=== PATIENT | female | born 1955 | race Caucasian/White ===

== ENCOUNTER 2021-02-24 08:27 | Day surgery (SDC) | payer OTHER ==
[2021-02-24] MEDS ORDERED: Zoledronic Acid/Mannitol/Water 5 MG/100 ML INFUS.BOT IV ONE (09:00)
[2021-02-24 09:23] VITALS: BP 120/58; TEMP 98; O2SAT 99; BMI 26.9
== END 2021-02-24 09:11 | disposition home or self-care (01) ==
LOC: DS 08:27
PROVIDERS: ATTEND Internal Medicine
DX: M81.0 Age-related osteoporosis without current pathological fracture (principal); T50.995A Adverse effect of other drugs, medicaments and biological substances, initial encounter
CPT/HCPCS: 96365; J3489

== ENCOUNTER 2022-12-21 07:00 | Day surgery (SDC) | payer OTHER ==
[2022-12-21] MEDS ORDERED: Zoledronic Acid/Mannitol/Water 5 MG/100 ML INFUS.BOT IV ONE (08:00)
[2022-12-21 10:11] VITALS: BP 143/69; TEMP 98; O2SAT 99; BMI 24.7
== END 2022-12-21 08:15 | disposition home or self-care (01) ==
LOC: DS 07:00
PROVIDERS: ATTEND Internal Medicine
DX: M81.0 Age-related osteoporosis without current pathological fracture (principal)
CPT/HCPCS: 96365; J3489

== ENCOUNTER 2024-07-26 14:30 | Inpatient (IN) | payer BC, OTHER ==
--- OUTSIDE RECORDS SUMMARY | 2024-07-26 14:34 | XMS REPORT | Continuity of Care Document ---
Author Name Unknown Address [address] [facility] [place] [address] [facility] Address [address] [facility] [place] [address] Care Team Providers Care Scouring Machine Tender Name Role Phone PCP, PATIENT DOES NOT HAVE A Primary Care Physic mendez Unavailable HENRIK PERRY Attending Clinician Henrik Mcelroy MD Attending Clinician Bello Haley MA Attending Clinician Vadim Quevedo Attending Clinician Unavailable RADIOLOGY Attending Clinician Unavailable Radiology Attending Clinician Unavailable BASILIA_GCHANSW_Sofia_S Attending Clinician HENRIK Stoddard Admitting Clinician Vadim Kaye Admitting Clinician Unavailable NATHALIE TINOCO Admitting Clinician Unavailable BASILIA_GCBZW_Sofia_S Admitting Clinician Jericho worrell Payers Payer Name Policy Type Policy Number Effective Date Expirati on Date Source [facility] MEDICARE ADV [id number] 2024 00:00:00 MEDICARE PART A \T\ B [id number] 2019 00:00:00 KIM [id number] 2020 00:00:00 [place] B-[place]: [employer] [id number] 2019 00:00:00 [facility] Mina ALVAREZ (MEDICARE SUPPLEMENT) [id number] 2020 00:00:00 Problems Condition Name Condition Details Condition Category Status Onset Date Resolution Date Last Treatment Date Treating Clinician Comments Source Insomnia Insomnia Problem Active 2-25 00:00: 00 [facility] Joint pain Joint Pain Problem Active 2-25 00:00: 00 [facility] Chronic insomnia Chronic Insomnia Problem Active 2-25 00:00: 00 [facility] Postmenopa usal osteoporos is Postmenopa usal Osteoporos is Problem Active 2-04 00:00: 00 [facility] Reduced libido Reduced Libido Problem Active 9-10 00:00: 00 [facility] Pain in pelvis Pain in Pelvis Problem Active 5- 00:00: 00 [facility] Lumbar spondylosi s Lumbar Spondylosi s Problem Active 5 00:00: 00 [facility] Osteoarthr itis of left hip joint Osteoarthr itis of Left Hip Joint Problem Active - 00:00: 00 [facility] Vitamin D deficiency Vitamin D Deficiency Problem Active - 00:00: 00 [facility] Subacute vaginitis Subacute Vaginitis Problem Active 3- 00:00: 00 [facility] Menopausal syndrome Menopausal Syndrome Problem Active 07-18 00:00: 00 [facility] Atrophy of vagina Atrophy of Vagina Problem Active 3- 00:00: 00 [facility] Acute urinary tract infection Acute Urinary Tract Infection Problem Active 1-30 00:00: 00 [facility] Osteoporos is Osteoporos is Problem Active - 00:00: 00 [facility] Fatigue Fatigue Problem Active 1-30 00:00: 00 [facility] Urgent desire to urinate Urgent Desire to Urinate Problem Active 1-30 00:00: 00 [facility] Type 2 diabetes mellitus without complicati on Type 2 Diabetes Mellitus without Complicati on Problem Active 5- 00:00: 00 [facility] Disorder associated with menstruati on AND/OR menopause Disorder Associated with Menstruati on AND/OR Menopause Problem Active 5- 00:00: 00 [facility] Screening mammograph y Screening Mammograph y Problem Active 09-17 00:00: 00 [facility] Screening for malignant neoplasm of colon Screening for Malignant Neoplasm of Colon Problem Active 09-17 00:00: 00 [facility] Superficia l pain on intercours e Superficia l Pain on Intercours e Problem Active 5 00:00: 00 [facility] Candidiasi s of vagina Candidiasi s of Vagina Problem Active 5 00:00: 00 [facility] Pain of breast Pain of Breast Problem Active 07-18 00:00: 00 [facility] Hyperglyce ingrid due to type 2 diabetes mellitus Hyperglyce ingrid Due to Type 2 Diabetes Mellitus Problem Active 07-18 00:00: 00 [facility] Acute vaginitis Acute Vaginitis Problem Active 2017-05 1 00:00: 00 [facility] Inconclusi ve mammograph y finding Inconclusi ve Mammograph y Finding Problem Active 8 00:00: 00 [facility] Abnormal findings on diagnostic imaging of breast Abnormal Findings on Diagnostic Imaging of Breast Problem Active 12-13 00:00: 00 [facility] Genuine stress incontinen ce Genuine Stress Incontinen ce Problem Active 09-05 00:00: 00 [facility] Atrophic vaginitis Atrophic Vaginitis Problem Active 09-03 00:00: 00 [facility] Bone density finding Bone Density Finding Problem Active 09-03 00:00: 00 [facility] Gynecologi daija examinatio n abnormal Gynecologi daija Examinatio n Abnormal Problem Active 09-03 00:00: 00 [facility] Allergies, Adverse Reactions, Alerts Allergy Name Allergy Type Status Severity Reaction(s) Onset Date Inactive Date Treating Clinician Comments Source No Known Allergie s DA Active U 10-31 00:00: 00 [facility] No Known Allergie s DA Active U 10-11 00:00: 00 [facility] No Known Allergie s DA Active U 10-31 00:00: 00 [facility] [place] [facility] No Known Allergie s DA Active U 10-31 00:00: 00 [facility] No Known Drug Intolera nces DA Active U 2002-0 2-04 00:00: 00 [facility] [place] [facility] No Known Contrast Allergie s DA Active U 06-12 00:00: 00 [facility] [place] [facility] No Known Drug Allergie s DA Active U 06-12 00:00: 00 [facility] [place] [facility] No Known Food Allergie s DA Active U 06-12 00:00: 00 [facility] [place] [facility] No Known Other Allergie s DA Active U 06-12 00:00: 00 [facility] [place] [facility] NO KNOWN ALLERGIE S Drug Class Active [facility] Social History Social Habit Start Date Stop Date Quantity Comments Source Gender identity 2023-07-31 00:18:40 Identifies as female gender (finding) Shukri Bird ASSERTION Possible Shukri Bird Sexual orientation [facility] Sex assigned at 1955 00:00:00 1955 00:00:00 [facility] Smoking Status Start Date Stop Date Source Tobacco smoking consumption [facility] Never Smoker [facility] Former Smoker [facility] Medications Ordered Medication Name Filled Medication Name Start Date Stop Date Current Medication? Ordering Clinician Indication Dosage Frequency Signature (SIG) Comments Components Source testosteron e 100 mg implant pelletTake 100 mg by implantatio n route. testosteron e 100 mg implant pelletTake 100 mg by implantatio n route. 07-03 13:57: 21 No 100mg testostero ne 100 mg implant pelletTake 100 mg by implantati on route. [facility] COAST - estradiol 6mg pellet1 COAST - estradiol 6mg pellet1 07-03 13:56: 44 No COAST - estradiol 6mg pellet1 [facility] COAST - testosteron e 37.5mg pellet1 COAST - testosteron e 37.5mg pellet1 07-03 13:55: 26 No COAST - testostero ne 37.5mg pellet1 [facility] estradiol 6 mg implant pellet Take 1 pellet by implantatio n route. estradiol 6 mg implant pellet Take 1 pellet by implantatio n route. 2023-05 16:58: 44 No 1pellet (s) estradiol 6 mg implant pellet Take 1 pellet by implantati on route. [facility] escitalopra m 5 mg tablet TAKE 1 TABLET BY MOUTH EVERY DAY escitalopra m 5 mg tablet TAKE 1 TABLET BY MOUTH EVERY DAY No escitalopr am 5 mg tablet TAKE 1 TABLET BY MOUTH EVERY DAY [facility] Mounjaro 5 mg/0.5 mL subcutaneou s pen injector INJECT FIVE (5) MG UNDER THE SKIN ONCE A WEEK. Mounjaro 5 mg/0.5 mL subcutaneou s pen injector INJECT FIVE (5) MG UNDER THE SKIN ONCE A WEEK. No Mounjaro 5 mg/0.5 mL subcutaneo us pen injector INJECT FIVE (5) MG UNDER THE SKIN ONCE A WEEK. [facility] progesteron e micronized 100 mg capsule Take 1 capsule every day by oral route for 90 days. progesteron e micronized 100 mg capsule Take 1 capsule every day by oral route for 90 days. No 1capsul e(s) Q1D progestero ne micronized 100 mg capsule Take 1 capsule every day by oral route for 90 days. [facility] COAST - estradiol 6mg pellet estradiol 6mg pellet 1 COAST - estradiol 6mg pellet estradiol 6mg pellet 1 No COAST - estradiol 6mg pellet estradiol 6mg pellet 1 [facility] lidocaine HCl 2 % topical gel 1 application to vulva daily as needed for pain. lidocaine HCl 2 % topical gel 1 application to vulva daily as needed for pain. No lidocaine HCl 2 % topical gel 1 applicatio n to vulva daily as needed for pain. [facility] trazodone 50 mg tablet TAKE ONE-HALF TO ONE (1/2 TO 1) TABLET BY MOUTH AT BEDTIME. trazodone 50 mg tablet TAKE ONE-HALF TO ONE (1/2 TO 1) TABLET BY MOUTH AT BEDTIME. No trazodone 50 mg tablet TAKE ONE-HALF TO ONE (1/2 TO 1) TABLET BY MOUTH AT BEDTIME. [facility] COAST - testosteron e 37.5mg pellet testosteron e 37.5mg pellet 1 COAST - testosteron e 37.5mg pellet testosteron e 37.5mg pellet 1 No COAST - testostero ne 37.5mg pellet testostero ne 37.5mg pellet [address] [facility] lidocaine 5 % topical ointment APPLY TO VULVA DAILY NEEDED FOR PAIN. lidocaine 5 % topical ointment APPLY TO VULVA DAILY NEEDED FOR PAIN. No lidocaine 5 % topical ointment APPLY TO VULVA DAILY NEEDED FOR PAIN. [facility] atorvastati n 20 mg tablet TAKE ONE (1) TABLET(S) BY MOUTH IN THE EVENING WITH A MEAL. atorvastati n 20 mg tablet TAKE ONE (1) TABLET(S) BY MOUTH IN THE EVENING WITH A MEAL. No atorvastat in 20 mg tablet TAKE ONE (1) TABLET(S) BY MOUTH IN THE EVENING WITH A MEAL. [facility] duloxetine 60 mg capsule,del ayed release TAKE ONE (1) TABLET(S) BY MOUTH ONCE A DAY. duloxetine 60 mg capsule,del ayed release TAKE ONE (1) TABLET(S) BY MOUTH ONCE A DAY. No duloxetine 60 mg capsule,de layed release TAKE ONE (1) TABLET(S) BY MOUTH ONCE A DAY. [facility] famotidine 40 mg tablet TAKE ONE (1) TABLET(S) BY MOUTH TWICE A DAY. famotidine 40 mg tablet TAKE ONE (1) TABLET(S) BY MOUTH TWICE A DAY. No famotidine 40 mg tablet TAKE ONE (1) TABLET(S) BY MOUTH TWICE A DAY. [facility] folic acid 1 mg tablet TAKE ONE (1) TABLET(S) BY MOUTH ONCE A DAY. folic acid 1 mg tablet TAKE ONE (1) TABLET(S) BY MOUTH ONCE A DAY. No folic acid 1 mg tablet TAKE ONE (1) TABLET(S) BY MOUTH ONCE A DAY. [facility] Janumet 50 mg-1,000 mg tablet TAKE 1 TABLET BY MOUTH TWO TIMES A DAY (WITH BREAKFAST AND SUPPER) Janumet 50 mg-1,000 mg tablet TAKE 1 TABLET BY MOUTH TWO TIMES A DAY (WITH BREAKFAST AND SUPPER) No Janumet 50 mg-1,000 mg tablet TAKE 1 TABLET BY MOUTH TWO TIMES A DAY (WITH BREAKFAST AND SUPPER) [facility] levothyroxi ne 50 mcg tablet TAKE ONE (1) TABLET(S) BY MOUTH ONCE A DAY. levothyroxi ne 50 mcg tablet TAKE ONE (1) TABLET(S) BY MOUTH ONCE A DAY. No levothyrox ine 50 mcg tablet TAKE ONE (1) TABLET(S) BY MOUTH ONCE A DAY. [facility] losartan 25 mg tablet TAKE ONE (1) TABLET(S) BY MOUTH EVERY MORNING. losartan 25 mg tablet TAKE ONE (1) TABLET(S) BY MOUTH EVERY MORNING. No losartan 25 mg tablet TAKE ONE (1) TABLET(S) BY MOUTH EVERY MORNING. [facility] pioglitazon e 15 mg tablet TAKE 1 TABLET BY MOUTH DAILY IN MORNING WITH BREAKFAST pioglitazon e 15 mg tablet TAKE 1 TABLET BY MOUTH DAILY IN MORNING WITH BREAKFAST No pioglitazo ne 15 mg tablet TAKE 1 TABLET BY MOUTH DAILY IN MORNING WITH BREAKFAST [facility] atorvastati n 20 mg tablet TAKE 1 TABLET BY MOUTH DAILY IN EVENING WITH MEAL atorvastati n 20 mg tablet TAKE 1 TABLET BY MOUTH DAILY IN EVENING WITH MEAL No atorvastat in 20 mg tablet TAKE 1 TABLET BY MOUTH DAILY IN EVENING WITH MEAL [facility] duloxetine 60 mg capsule,del ayed release TAKE 1 CAPSULE BY MOUTH EVERY DAY duloxetine 60 mg capsule,del ayed release TAKE 1 CAPSULE BY MOUTH EVERY DAY No duloxetine 60 mg capsule,de layed release TAKE 1 CAPSULE BY MOUTH EVERY DAY [facility] estradiol 0.01% (0.1 mg/gram) vaginal cream INSERT 0.5 GRAMS 3 TIMES A WEEK BY VAGINAL ROUTE AT BEDTIME FOR 30 DAYS. estradiol 0.01% (0.1 mg/gram) vaginal cream INSERT 0.5 GRAMS 3 TIMES A WEEK BY VAGINAL ROUTE AT BEDTIME FOR 30 DAYS. No estradiol 0.01% (0.1 mg/gram) vaginal cream INSERT 0.5 GRAMS 3 TIMES A WEEK BY VAGINAL ROUTE AT BEDTIME FOR 30 DAYS. [facility] famotidine 40 mg tablet TAKE 1 TABLET BY MOUTH TWICE A DAY famotidine 40 mg tablet TAKE 1 TABLET BY MOUTH TWICE A DAY No famotidine 40 mg tablet TAKE 1 TABLET BY MOUTH TWICE A DAY [facility] folic acid 1 mg tablet TAKE 1 TABLET BY MOUTH EVERY DAY folic acid 1 mg tablet TAKE 1 TABLET BY MOUTH EVERY DAY No folic acid 1 mg tablet TAKE 1 TABLET BY MOUTH EVERY DAY [facility] gabapentin 100 mg capsule TAKE 1 CAPSULE BY MOUTH TWICE A DAY gabapentin 100 mg capsule TAKE 1 CAPSULE BY MOUTH TWICE A DAY No gabapentin 100 mg capsule TAKE 1 CAPSULE BY MOUTH TWICE A DAY [facility] Janumet 50 mg-1,000 mg tablet TAKE 1 TABLET BY MOUTH TWO TIMES A DAY (WITH BREAKFAST AND SUPPER) Janumet 50 mg-1,000 mg tablet TAKE 1 TABLET BY MOUTH TWO TIMES A DAY (WITH BREAKFAST AND SUPPER) No Janumet 50 mg-1,000 mg tablet TAKE 1 TABLET BY MOUTH TWO TIMES A DAY (WITH BREAKFAST AND SUPPER) [facility] levothyroxi ne 50 mcg tablet TAKE 1 TABLET BY MOUTH EVERY DAY levothyroxi ne 50 mcg tablet TAKE 1 TABLET BY MOUTH EVERY DAY No levothyrox ine 50 mcg tablet TAKE 1 TABLET BY MOUTH EVERY DAY [facility] losartan 25 mg tablet TAKE 1 TABLET BY MOUTH EVERY DAY IN THE MORNING losartan 25 mg tablet TAKE 1 TABLET BY MOUTH EVERY DAY IN THE MORNING No losartan 25 mg tablet TAKE 1 TABLET BY MOUTH EVERY DAY IN THE MORNING [facility] pioglitazon e 15 mg tablet TAKE 1 TABLET BY MOUTH DAILY IN MORNING WITH BREAKFAST pioglitazon e 15 mg tablet TAKE 1 TABLET BY MOUTH DAILY IN MORNING WITH BREAKFAST No pioglitazo ne 15 mg tablet TAKE 1 TABLET BY MOUTH DAILY IN MORNING WITH BREAKFAST [facility] aspirin 81 mg tablet,cristina yed release Take 1 tablet twice a day by oral route for 42 days. aspirin 81 mg tablet,cristina yed release Take 1 tablet twice a day by oral route for 42 days. No 1 BID aspirin 81 mg tablet,del ayed release Take 1 tablet twice a day by oral route for 42 days. [facility] doxycycline hyclate 100 mg capsule TAKE 1 CAPSULE BY MOUTH TWICE A DAY FOR 7 DAYS doxycycline hyclate 100 mg capsule TAKE 1 CAPSULE BY MOUTH TWICE A DAY FOR 7 DAYS No doxycyclin e hyclate 100 mg capsule TAKE 1 CAPSULE BY MOUTH TWICE A DAY FOR 7 DAYS [facility] Eliquis 2.5 mg tablet TAKE 1 TABLET TWICE A DAY BY ORAL ROUTE DIRECTED FOR 42 DAYS. Eliquis 2.5 mg tablet TAKE 1 TABLET TWICE A DAY BY ORAL ROUTE DIRECTED FOR 42 DAYS. No Eliquis 2.5 mg tablet TAKE 1 TABLET TWICE A DAY BY ORAL ROUTE DIRECTED FOR 42 DAYS. [facility] escitalopra m 5 mg tablet TAKE 1 TABLET BY MOUTH EVERY DAY escitalopra m 5 mg tablet TAKE 1 TABLET BY MOUTH EVERY DAY No escitalopr am 5 mg tablet TAKE 1 TABLET BY MOUTH EVERY DAY [facility] Hibiclens 4 % topical liquid APPLY 1 APPLICATION EVERY DAY BY TOPICAL ROUTE FOR 5 DAYS. Hibiclens 4 % topical liquid APPLY 1 APPLICATION EVERY DAY BY TOPICAL ROUTE FOR 5 DAYS. No Hibiclens 4 % topical liquid APPLY 1 APPLICATIO N EVERY DAY BY TOPICAL ROUTE FOR 5 DAYS. [facility] meloxicam 15 mg tablet TAKE 1 TABLET BY MOUTH EVERY DAY WITH MEALS meloxicam 15 mg tablet TAKE 1 TABLET BY MOUTH EVERY DAY WITH MEALS No meloxicam 15 mg tablet TAKE 1 TABLET BY MOUTH EVERY DAY WITH MEALS [facility] mupirocin 2 % topical ointment APPLY A SMALL AMOUNT TO EACH NOSTRIL DAILY FOR 5 DAYS BEFORE SURGERY mupirocin 2 % topical ointment APPLY A SMALL AMOUNT TO EACH NOSTRIL DAILY FOR 5 DAYS BEFORE SURGERY No mupirocin 2 % topical ointment APPLY A SMALL AMOUNT TO EACH NOSTRIL DAILY FOR 5 DAYS BEFORE SURGERY [facility] oxycodone-a cetaminophe n 5 mg-325 mg tablet Take 1 tablet every 6-8 hours by oral route as needed for 5 days, for acute pain. oxycodone-a cetaminophe n 5 mg-325 mg tablet Take 1 tablet every 6-8 hours by oral route as needed for 5 days, for acute pain. No oxycodone- acetaminop hen 5 mg-325 mg tablet Take 1 tablet every 6-8 hours by oral route as needed for 5 days, for acute pain. [facility] tizanidine 4 mg tablet TAKE 1 TABLET BY MOUTH EVERY 8 HOURS NEEDED FOR 14 DAYS tizanidine 4 mg tablet TAKE 1 TABLET BY MOUTH EVERY 8 HOURS NEEDED FOR 14 DAYS No tizanidine 4 mg tablet TAKE 1 TABLET BY MOUTH EVERY 8 HOURS NEEDED FOR 14 DAYS [facility] tramadol 50 mg tablet TAKE 1 TABLET(S) EVERY 6 HOURS BY ORAL ROUTE NEEDED FOR PAIN FOR 7 DAYS tramadol 50 mg tablet TAKE 1 TABLET(S) EVERY 6 HOURS BY ORAL ROUTE NEEDED FOR PAIN FOR 7 DAYS No tramadol 50 mg tablet TAKE 1 TABLET(S) EVERY 6 HOURS BY ORAL ROUTE NEEDED FOR PAIN FOR 7 DAYS [facility] amoxicillin 500 mg capsule TAKE 4 CAPSULES BY MOUTH 1 HOUR PRIOR TO DENTAL APPOINTMENT amoxicillin 500 mg capsule TAKE 4 CAPSULES BY MOUTH 1 HOUR PRIOR TO DENTAL APPOINTMENT No amoxicilli n 500 mg capsule TAKE 4 CAPSULES BY MOUTH 1 HOUR PRIOR TO DENTAL APPOINTMEN T [facility] Mounjaro 2.5 mg/0.5 mL subcutaneou s pen injector INJECT 0.5ML SUBCUTANEOU SLY ONCE A WEEK Mounjaro 2.5 mg/0.5 mL subcutaneou s pen injector INJECT 0.5ML SUBCUTANEOU SLY ONCE A WEEK No Mounjaro 2.5 mg/0.5 mL subcutaneo us pen injector INJECT 0.5ML SUBCUTANEO USLY ONCE A WEEK [facility] Vital Signs Vital Name Observation Time Observation Value Comments S ource BP Diastolic 2024-06-12 00:00:00 64 mm[Hg] [facility] BP Systolic 2024-06-12 00:00:00 132 mm[Hg] [facility] BMI (Body Mass Index) 2024-06-12 00:00:00 24.4 kg/m2 [facility] Height 2024-06-12 00:00:00 63 [in_i] [facility] Body Weight 2024-06-12 00:00:00 138 [lb_av] [facility] Height 2023-11-21 00:00:00 63 [in_i] [facility] Body Weight 2023-09-13 00:00:00 140 [lb_av] [facility] Height 2023-09-13 00:00:00 63 [in_i] [facility] BMI (Body Mass Index) 2023-09-13 00:00:00 24.8 kg/m2 [facility] Procedures Procedure Date / Time Performed Performing Clinician Source DEXA PERIPHERAL (FOREARM) 2024-06-18 20:16:50 Emi Olvera [facility] DEXA AXIAL (HIP AND SPINE) 2024-06-18 20:16:50 [facility]/>SITES APPENDICLR SKEL 2024-06-18 00:00:[address] [facility] DXA BONE DENSITY STUDY 1/> SITES AXIAL SKEL 2024-06-12 00:00:00 [facility] MAMMO, screening, digital, bilateral 2024-06-12 00:00:[address] [facility] RADEX PELVIS 1/2 VIEWS 2024-02-21 00:00:00 [facility] MAMMO, screening, digital, bilateral 2023-10-20 00:00:00 [facility] Total Replacement of Hip 2023-10-08 00:00:00 [facility] RADEX PELVIS 1/2 VIEWS 2023-09-13 00:00:00 [facility] RADEX SPI 1 VIEW SPEC LVL 2023-09-13 00:00:00 [facility] Augmentation Mammoplasty 2012-05-09 00:00:[address] [facility] Bypass of Stomach 2008-05-09 00:00:00 [facility] Procedure on Back 2001-05-09 00:00:00 [facility] Ligation of Fallopian Tube 1975-05-09 00:00:[address] [facility] Back Surgery [facility] Carpal Tunnel Surgery [facility] Hernia Repair [facility] Hysterectomy [facility] Encounters Start Date/Time End Date/Time Encounter Type Admission Type Attending Clinicians Care Facility Care Department Encounter ID Source 2024-07-03 00:00:00 2024-07-03 00:00:00 Maris Goodwin, COMMERCIAL LINES MANAGER: [address], [facility] [address], [place] [address] , Ph. [facility] [id number] [facility] 2024-06-18 12:47:42 2024-06-18 23:59:00 Outpatient R HENRIK PERRY [facility] [id number] [facility] 2024-06-18 12:47:42 2024-06-18 23:59:00 Hospital Encounter Henrik Perry [facility] [place] [facility] [id number] [facility] 2024-06-12 00:00:00 2024-06-12 00:00:00 Henrik Perry MD: [address], [address], [place] [phone] , Ph. [facility] - GC_GCBZW_Gricelda Moore* [id number] [facility] 2024-05-24 00:00:00 2024-05-24 00:00:00 MAISHA Adamson: [address], [address], [place] [phone] , Ph. [facility] - GC_GCBZW_Gricelda Moore* [id number] [facility] 2024-04-10 00:00:00 2024-04-10 00:00:00 AMANDA LackeyP: [address], [address], [place] [phone] , Ph. [facility] - GC_GCBZW_Gricelda Moore* [id number] [facility] 2024-03-07 00:00:00 2024-04-07 23:52:52 Telephone Tera, Onrawin Tera, Onrawin [facility] [address] [id number] Ana Luisa Herr [facility] 2024-03-09 00:00:00 2024-03-09 00:00:00 LAURA Guevara: [address], [address], [place] [phone] , Ph. [facility] - GC_GCBZW_Gricelda Moore* [id number] [facility] 2024-02-21 00:00:00 2024-02-21 00:00:00 Vadim Trinidad MD: [address] [place], [place] [address] , Ph. [phone] [facility] [place] - [facility] - FOG_Ofc Ivel [id number] [facility] 2024-01-17 00:00:00 2024-01-17 00:00:00 Maris Goodwin, COMMERCIAL LINES MANAGER: [address] [facility] [address], [address] [address] , Ph. [facility] [id number] [facility] 2023-12-20 00:00:00 2023-12-20 00:00:00 Vadim Trinidad MD: [address] [place], [place] [address] , Ph. [phone] [facility] [place] - [facility] - FOG_Ofc Ivel [id number] [facility] 2023-11-21 00:00:00 2023-11-21 00:00:00 Robbie Madison, CASTING PLUG ASSEMBLER: [address] [place], [place] [address] , Ph. [phone] [facility] [place] - [facility] - FOG_Ofc Ivel [id number] [facility] 2023-11-01 06:42:00 2023-11-02 15:12:00 Inpatient Vadim Chicas HCATO SURG [id number] 57 [facility] 2023-10-28 11:46:56 2023-10-28 23:59:00 Outpatient R RADIOLOGY [facility] [id number] [facility] 2023-10-28 11:46:56 2023-10-28 23:59:00 Hospital Encounter Radiology [facility] [id number] [facility] 2023-10-20 00:00:00 2023-10-20 00:00:00 Nathalie Tinoco PA: [address], [facility] [address], [place] [address] , Ph. [facility] - GC_GCBZW_Gricelda ramírez Oscar* [id number] [facility] 2023-10-11 12:03:00 2023-10-11 12:03:00 Outpatient KERRI Trinidad Vadim HCAWU REFE [id number] [facility] 2023-10-11 12:02:00 2023-10-11 12:02:00 Outpatient Vadim Chicas HCACL LABO [id number] 49 [facility] 2023-09-13 00:00:00 2023-09-13 00:00:00 Vadim Trinidad MD: [id number] [place] [address] , Ph. [phone] [facility] [place] - [facility] - FOG_Ofc Ivel [id number] [facility] 2023-08-31 00:00:00 2023-08-31 00:00:00 AMANDA GuevaraP: [address], [address], [place] [address] , Ph. [facility] - GC_GCBZW_Gricelda ramírez Oscar* [id number] [facility] 2023-08-16 00:00:00 2023-08-16 00:00:00 Outpatient GC_GCBZW_Ka diyala_S PRIV PRIV [id number] [facility] 2023-08-11 00:00:00 2023-08-11 00:00:00 Outpatient GC_GCBZW_Ka diyala_S PRIV PRIV [id number] [facility] 2023-07-19 00:00:00 2023-07-19 00:00:00 Outpatient GC_GCBZW_Ka diyala_S PRIV PRIV [id number] [facility] 2023-07-19 00:00:00 2023-07-19 00:00:00 Cynthia Su, COMM[employer]CIAL [employer]ES MANAGER: [address], [address], [place] [address] , Ph. [facility] - GC_GCBZW_La darrell Moore* [id number] [facility] 2023-07-18 00:00:00 2023-07-18 00:00:00 Outpatient GC_GCBZW_Ka diyala_S PRIV PRIV [id number] [facility] 2023-06-07 00:00:00 2023-06-07 00:00:00 Outpatient GC_GCBZW_Ka diyala_S PRIV PRIV [id number] [facility] 2023-06-06 00:00:00 2023-06-06 00:00:00 Outpatient GC_GCBZW_Ka diyala_S PRIV PRIV [id number] [facility] 2023-05-24 00:00:00 2023-05-24 00:00:00 Outpatient GC_GCBZW_Ka diyala_S PRIV PRIV [id number] [facility] 2023-03-03 00:00:00 2023-03-03 00:00:00 Outpatient GC_GCBZW_Ka diyala_S PRIV PRIV [id number] [facility] 2023-03-03 00:00:00 2023-03-03 00:00:00 Outpatient GC_GCBZW_Ka diyala_S PRIV PRIV [id number] [facility] 2022-12-14 00:00:00 2022-12-14 00:00:00 Outpatient GC_GCBZW_Ka diyala_S PRIV PRIV [id number] [facility] 2022-12-14 00:00:00 2022-12-14 00:00:00 Outpatient GC_GCBZW_Ka diyala_S PRIV PRIV [id number] [facility] Results Test Description Test Time Test Comments Results Result Comments Source Dexa Axial (hip and spine) 20:33:17 DEXA ? ? DEXA AXIAL (HIP AND SPINE), DEXA PERIPHERAL (FOREARM) HISTORY: Female 68 years Age-related osteoporosis without currentpathological fracture External orders COMPARISON: ?None TECHNIQUE: Bone densitometry of the left forearm, lumbar spine and hip was performedon a [email or web address] system. ? WHO-definitions ?T score ?normal ? T >/= - 1 SD around the mean ?osteopenia ?-1 > T > -2.5 SD below the mean ? ? osteoporosis ? ? ? T >/= -2.5 SD below the mean ? Fracture risk doubles for each 1.5 SD below the mean. ? FINDINGS: 1. Lumbar spine L1-L4: T value 1.9. ?Bone mineral density of 1.431g/cm^2. 2. Right Hip: T value of -1.0. ?Bone mineral density of 0.878 g/cm^2. Right Neck: T value of -0.8. ?Bone mineral density of 0.922 g/cm^2. Left forearm T value of -3.1. Bone mineral density of 0.605 g/cm^2. [facility] Dexa Peripheral (forearm) 20:33:17 DEXA ? ? DEXA AXIAL (HIP AND SPINE), DEXA PERIPHERAL (FOREARM) HISTORY: Female 68 years Age-related osteoporosis without currentpathological fracture External orders COMPARISON: ?None TECHNIQUE: Bone densitometry of the left forearm, lumbar spine and hip was performedon a [email or web address] system. ? WHO-definitions ?T score ?normal ? T >/= - 1 SD around the mean ?osteopenia ?-1 > T > -2.5 SD below the mean ? ? osteoporosis ? ? ? T >/= -2.5 SD below the mean ? Fracture risk doubles for each 1.5 SD below the mean. ? FINDINGS: 1. Lumbar spine L1-L4: T value 1.9. ?Bone mineral density of 1.431g/cm^2. 2. Right Hip: T value of -1.0. ?Bone mineral density of 0.878 g/cm^2. Right Neck: T value of -0.8. ?Bone mineral density of 0.922 g/cm^2. Left forearm T value of -3.1. Bone mineral density of 0.605 g/cm^2. [facility] MedicalFollitropin [Units/volume] in Serum or [id number] 00:00:00* Test Item Value Reference Range Interpretation Comme nts FSH (test code = FSH) 63.4 mIU/mL [facility] MedicalTestosterone free and total panel [Mass/volume] - Serum or Plasma 2024-05-18 00:00:00* Test Item Value Reference Range Interpretation Comme nts free testosterone (test code = free testosterone) 2.83 NG/dL 0.12-0.64 H sex hormone binding globulin (test code = sex hormone binding globulin) 75.10 nmol/L 10.00-57.00 H testosterone (test code = testosterone) 259.0 NG/dL 8.4-48.1 H [facility] [id number] 12:11:00* Test Item Value Reference Range Interpretation Comme nts GLUBED (test code = GLUBED) 164 mg/dL 60-99 H The normal fasti ng blood glucose range for a non-diabeticadult is 60-99 mg/dL. Two hours after meals, normal blood glucose levels should beless than 140 mg/dL.Please note new normal range. [id number] 11:34:00* Test Item Value Reference Range Interpretation Comme nts glubed (test code = glubed) 164 mg/dL 60-99 H performing lab: (test code = performing lab:) [facility]- XR PELVIS 1/2 [id number] 08:16:00 [facility] : 1955 Sex: F Patient Name: ELMO CRESPO Unit No: [id number] EXAMS: CPT CODE: [id number] XR PELVIS 1/2 VIEWS 04007 AP VIEW OF THE PELVIS. COMMENT: In progress total left hip arthroplasty. AP view of the pelvis COMMENT: Completed total left hip arthroplasty. Prosthesis appears to be in good position. at 0816 Reported and signed by: Pavan Etienne M.D. CC: Vadim Trinidad MD Technologist: Fanny Morgan(R) Transcribed D/ (0816) [facility] NAME: ELMO CRESPO [address] [facility] PHYS: Vadim Smart MD : 1955 AGE: 68 SEX: F [place] [address] LOC: Y.515 A PHONE #: [phone] EXAM DATE: 11/01/2023 STATUS: ADM IN FAX #: [phone] RAD #: D/C DT PAGE 1 Signed Report Patient Name: ELMO CRESPO Unit No: [id number] EXAMS: CPT CODE: [id number] XR PELVIS 1/2 VIEWS 16581 (Continued) Orig Print D/T: S: 11/02/2023 (0819) [facility] NAME: ELMO CRESPO [address] [facility] PHYS: Vadim Smart MD : 1955 AGE: 68 SEX: F [place], [place] [address] LOC: Y.515 A PHONE #: [phone] EXAM DATE: 11/01/2023 STATUS: ADM IN FAX #: [phone] RAD #: D/C DT PAGE 2 Signed Report- XR PELVIS 1/2 [id number] 08:16:00 [facility] EL[facility] : 1955 Sex: F Patient Name: ELMO CRESPO Unit No: [id number] EXAMS: CPT CODE: [id number] XR PELVIS 1/2 VIEWS 41178 AP VIEW OF THE PELVIS. COMMENT: In progress total left hip arthroplasty. AP view of the pelvis COMMENT: Completed total left hip arthroplasty. Prosthesis appears to be in good position. Electronically S igned by Viet Etienne on 11/02/2023 at 0816 Reported and signed by: Pavan Etienne M.D. CC: Vadim Trinidad MD Technologist: KEITH CLEMENTE RT(R) Transcribed D/ (0816) [facility] NAME: ELMO CRESPO [address] [facility] PHYS: Vadim Smart MD : 1955 AGE: 68 SEX: F [place], [place] [address] LOC: Y.515 A PHONE #: [phone] EXAM DATE: 11/01/2023 STATUS: ADM IN FAX #: [phone] RAD #: D/C DT PAGE 1 Signed Report Patient Name: ELMO CRESPO Unit No: [id number] EXAMS: CPT CODE: [id number] XR PELVIS 1/2 VIEWS 23627 (Continued) Orig Print D/T: S: 11/02/2023 (0819) [facility] NAME: ELMO CRESPO [address] [facility] PHYS: Vadim Smart MD : 1955 AGE: 68 SEX: F [place] LOC: Y.515 A PHONE #: [phone] EXAM DATE: 11/01/2023 STATUS: ADM INFAX #: [phone] RAD #: D/C DT PAGE 2 Signed ReportBASIC METABOLIC [id number] 07:57:00* Test Item Value Reference Range Interpretation Comme nts SODIUM (test code = NA) 136 mmol/L 136-145 N POTASSIUM (test code = K) 5.2 mmol/L 3.5-5.1 H CHLORIDE (test code = CL) 100.0 mmol/L 98-107 N CARBON DIOXIDE (test code = CO2) 26.8 mmol/L 21-32 N GLUCOSE (test code = GLU) 103 mg/dL 74-106 N BLOOD UREA NITROGEN (test code = BUN) 15 mg/dL 7-18 N GLOMERULAR FILTRATION RATE (test code = GFR) 64.9 >60 The Glomerular Filtration Rate is a calculated parameterbased on serum Creatinine, patient age and sex. GFR valuesless than 60 mL/min/1.73 square meters are indicative ofChronic Kidney Disease. Values less than 15 mL/min/1.73square meters indicate Kidney failure. The calculation forGFR is based on the CKD-EPI (2020) calculation. This formulais race indifferent and is the recommended formula for GFRby the National Kidney Foundation for Adults.The GFR will not calculate if the sex is unknown or if thepatient's age is <18 years. CREATININE (test code = CREAT) 0.95 mg/dL 0.55-1.02 N CALCIUM (test code = CA) 9.4 mg/dL 8.5-10.1 N [id number] 06:11:00* Test Item Value Reference Range Interpretation Comme nts GLUBED (test code = GLUBED) 109 mg/dL 60-99 H The normal fasti blood glucose range for a non-diabeticadult is 60-99 mg/dL. Two hours after meals, normal blood glucose levels should beless than 140 mg/dL.Please note new normal range. HGB [id number] 05:55:00* Test Item Value Reference Range Interpretation Comme nts HEMOGLOBIN (test code = HGB) 10.5 g/dL 12-16 L HEMATOCRIT (test code = HCT) 32.2 % 37-47 L SPECIMEN COMMENT: POD #[id number] 05:53:00* Test Item Value Reference Range Interpretation Comme nts glubed (test code = glubed) 109 mg/dL 60-99 H performing lab: (test code = performing lab:) [facility] 2023-11-02 04:13:00* Test Item Value Reference Range Interpretation Comme nts hemoglobin (test code = hemoglobin) 10.5 g/dL 12-16 L hematocrit (test code = hematocrit) 32.2 % 37-47 L performing lab: (test code = performing lab:) [id number] 19:50:00* Test Item Value Reference Range Interpretation Comme nts GLUBED (test code = GLUBED) 163 mg/dL 60-99 H The normal fasti ng blood glucose range for a non-diabeticadult is 60-99 mg/dL. Two hours after meals, normal blood glucose levels should beless than 140 mg/dL.Please note new normal range. [id number] 19:11:00* Test Item Value Reference Range Interpretation Comme nts glubed (test code = glubed) 163 mg/dL 60-99 H performing lab: (test code = performing lab:) [facility] 16:59:00* Test Item Value Reference Range Interpretation Comme nts GLUBED (test code = GLUBED) 206 mg/dL 60-99 H The normal fasti ng blood glucose range for a non-diabeticadult is 60-99 mg/dL. Two hours after meals, normal blood glucose levels should beless than 140 mg/dL.Please note new normal range. [id number] 16:18:00* Test Item Value Reference Range Interpretation Comme nts glubed (test code = glubed) 206 mg/dL 60-99 H performing lab: (test code = performing lab:) [facility] 07:37:00* Test Item Value Reference Range Interpretation Comme nts GLUBED (test code = GLUBED) 118 mg/dL 60-99 H The normal fasti ng blood glucose range for a non-diabeticadult is 60-99 mg/dL. Two hours after meals, normal blood glucose levels should beless than 140 mg/dL.Please note new normal range. [id number] 07:21:00* Test Item Value Reference Range Interpretation Comme nts glubed (test code = glubed) 118 mg/dL 60-99 H performing lab: (test code = performing lab:) [facility] MedicineGLYCOSYLATED HEMOGLOBIN (HA1C)2023-10-11 15:08:00* Test Item Value Reference Range Interpretation Comme nts GLYCOSYLATED HEMOGLOBIN (HA1C) (test code = GLYHGB) 5.7 % 4.8-5.9 Any conditi on that shortens erythocyte survival or decreasesmean erythrocyte age (e.g., recovery from acute blood loss,hemolytic anemai) will falsely lower HGBA1c resultsregardless of the method used. HGBA1c results frompatients with HbSS, HbCC and HbSc must be interpreted withcaution given the pathological processes, including anemia,increased red cell turnover, transfusion requirements, thatadversely impact HGBA1c as a marker of long-term glycemiccontrol. Alternative forms of testing such as fructosamineshould be considered for these patients.Any condition that shortens erythocyte survival or decreasesmean erythrocyte age (e.g., recovery from acute blood loss,hemolytic anemia) will falsely lower HGBA1c resultsregardless of the method used. HGBA1c results from patientswith HbSS, HbCC, and HbSc must be interpreted with cautiongiven the pathological processes, including anemia,increased red cell turnover, transfusion requirements, thatadversely impact HGBA1c as a marker of long-term glycemiccontrol. Alternative forms of testing such as fructosamineshould be considered for these patients.DONE AT: [facility] [address] [place] [address] GLYCOSYLATED HEMOGLOBIN (HA1C)2023-10-11 15:08:00* Test Item Value Reference Range Interpretation Comme nts GLYCOSYLATED HEMOGLOBIN (HA1C) (test code = GLYHGB) 5.7 % 4.8-5.9 N Any conditi on that shortens erythocyte survival or decreasesmean erythrocyte age (e.g., recovery from acute blood loss,hemolytic anemia) will falsely lower HGBA1c resultsregardless of the method used. HGBA1c results from patientswith HbSS, HbCC, and HbSc must be interpreted with cautiongiven the pathological processes, including anemia,increased red cell turnover, transfusion requirements, thatadversely impact HGBA1c as a marker of long-term glycemiccontrol. Alternative forms of testing such as fructosamineshould be considered for these patients. COMPREHENSIVE METABOLIC [id number] 12:41:00* Test Item Value Reference Range Interpretation Comme nts SODIUM (test code = NA) 137 mmol/L 136-145 N POTASSIUM (test code = K) 4.6 mmol/L 3.5-5.1 N CHLORIDE (test code = CL) 100.0 mmol/L 98-107 N CARBON DIOXIDE (test code = CO2) 27.1 mmol/L 21-32 N GLUCOSE (test code = GLU) 144 mg/dL 74-106 H BLOOD UREA NITROGEN (test code = BUN) 14 mg/dL 7-18 N GLOMERULAR FILTRATION RATE (test code = GFR) 51.0 >60 L The Glomerular Filtration Rate is a calculated parameterbased on serum Creatinine, patient age and sex. GFR valuesless than 60 mL/min/1.73 square meters are indicative ofChronic Kidney Disease. Values less than 15 mL/min/1.73square meters indicate Kidney failure. The calculation forGFR is based on the CKD-EPI (202) calculation. This formulais race indifferent and is the recommended formula for GFRby the National Kidney Foundation for Adults.The GFR will not calculate if the sex is unknown or if thepatient's age is <18 years. CREATININE (test code = CREAT) 1.16 mg/dL 0.55-1.02 H TOTAL PROTEIN (test code = PROT) 7.2 g/dL 6.4-8.2 N ALBUMIN (test code = ALB) 3.8 g/dL 3.4-5.0 N GLOBULIN (test code = GLOB) 3.4 g/dL 2.2-4.2 N ALBUMIN/GLOBULIN RATIO (test code = A/G) 1.1 0.7-2.0 N CALCIUM (test code = CA) 9.5 mg/dL 8.5-10.1 N BILIRUBIN TOTAL (test code = BILT) 0.30 mg/dL 0.2-1.00 N SGOT/AST (test code = AST) 25.0 U/L 15-37 N SGPT/ALT (test code = ALT) 39.0 U/L 14-59 N ALKALINE PHOSPHATASE TOTAL (test code = ALKP) 54 U/L 46-116 N CBC W/AUTO [id number] 12:25:00* Test Item Value Reference Range Interpretation Comme nts WHITE BLOOD CELL (test code = WBC) 5.3 K/mm3 5.5-11.0 L RED BLOOD CELL (test code = RBC) 3.94 M/mm3 4.2-5.4 L HEMOGLOBIN (test code = HGB) 12.2 g/dL 12-16 N HEMATOCRIT (test code = HCT) 36.7 % 37-47 L MEAN CELL VOLUME (test code = MCV) 93 fL 80-98 N MEAN CELL HGB (test code = MCH) 31.0 pg 27-34 N MEAN CELL HGB CONCENTRATION (test code = MCHC) 33.2 g/dL 30.8-34.1 N RED CELL DISTRIBUTION WIDTH (test code = RDW) 13.0 % 11-16 N PLT (test code = PLT) 259 K/mm3 130-400 N MEAN PLATELET VOLUME (test c ode = MPV) 11.1 fL 8.9-12.1 N NEUTROPHIL % (test code = NT%) 64.5 % 45-70 N LYMPHOCYTE % (test code = LY%) 20.7 % 20-40 N MONOCYTE % (test code = MO%) 8.0 % 3-10 N EOSINOPHIL % (test code = EO%) 5.5 % 1-5 H BASOPHIL % (test code = BA%) 1.1 % 0.0-1.1 N NEUTROPHIL # (test code = NT#) 3.40 K/mm3 2.00-7.50 N LYMPHOCYTE # (test code = LY#) 1.09 K/mm3 1.50-4.00 L MONOCYTE # (test code = MO#) 0.42 K/mm3 0.2-0.8 N EOSINOPHIL # (test code = EO#) 0.29 K/mm3 0.04-0.4 N BASOPHIL # (test code = BA#) 0.06 K/mm3 0.02-0.10 N MANUAL DIFF REQUIRED (test c ode = MDIFF) NO MANUAL DIFF NUCLEATED RED BLOOD CELL (te st code = NRBC) 0 % 0-0 N Testosterone free and total panel [Mass/volume] - Serum or [id number] 00:00:00* Test Item Value Reference Range Interpretation Comme nts free testosterone (test code = free testosterone) 2.55 NG/dL 0.12-0.64 H sex hormone binding globulin (test code = sex hormone binding globulin) 103.00 nmol/L 10.00-57.00 H testosterone (test code = testosterone) 300.0 NG/dL 8.4-48.1 H [facility] Notes Date/Time Note [id number]22 [place] [id number] 10:44:00 [facility] Clinical Note REPORT#:[id number] REPORT STATUS: Signed REPORT INITIALIZATION DATE:11/02/23 TIME: 104 PATIENT: ELMO CRESPO UNIT #: [id number] [facility] AGE: 68 SEX: F ATTEND: Vadim Trinidad MD ADM AUTHOR: Julius Patricio MD REPT SERVICE DT/TIME: 11/02/23 1044 * ALL edits or amendments must be made on the electronic/computer document * Clinical Note Note: [facility] Julius Mendez M.D. (cell text [phone]) Assessment/Plan 1.) Anemia of acute blood loss- .Hgb 10.5, asymptomatic. 2.) S/p Left GUTIERREZ- .acute multi-modal pain control and followup. Anticoagulation as per Dr. Trinidad. 3.) Hypertension- .follow BP and hold Rxs if SBP<120. 4.) OsteoArthritis Hyperlipidemia Hypothyroid Diabetes2- .continue on Rx. * OK for DISCHARGE per Internal Medicine - once cleared by PT. Prior Events/Overnight: Uneventful. Chief Complaint: No significant complaints. Objective Vital Signs: Date Time Temp Pulse Resp B/P B/P Pulse O2 O2 Flow FiO2 Mean Ox Delivery Rate 11/01 1154 97.9 14 11/01 1134 99.7 79 14 130/67 87.9 98 Room air 11/01 0737 100.9 82 15 125/69 87.7 100 Room air 11/01 0403 97.2 73 18 131/76 94.5 96 10/31 2322 97.0 67 18 134/74 94.4 96 10/31 1913 97.9 68 18 117/68 84.3 95 10/31 1537 96.8 71 20 124/67 85.7 97 10/31 1500 96 Nasal 1 cannula Gen: Alert, oriented, in mild discomfort Neck: No Masses, No Thyromegaly- CV: Regular Rate Rhythm / Edema- no significant Resp: Clear To Ascultation / Normal Respiratory Effort ABD: NonTender / NonDistended MS/Skin: No sign of compartment syndrome / +ankle DF/PF Other: drain out Labs/X-ray: Laboratory Tests: 11/01 11/01 10/31 10/31 0553 0413 1911 1618 Chemistry Sodium (136 - 145 mmol/L) 136 Potassium (3.5 - 5.1 mmol/L) 5.2 H Chloride (98 - 107 mmol/L) 100.0 Carbon Dioxide (21 - 32 mmol/L) 26.8 BUN (7 - 18 mg/dL) 15 Creatinine (0.55 - 1.02 mg/dL) 0.95 Glomerular Filtr Rate (>60) 64.9 Glucose (74 - 106 mg/dL) 103 POC Glucose (60 - 99 mg/dL) 109 H 163 H 206 H Calcium (8.5 - 10.1 mg/dL) 9.4 Hematology Hgb (12 - 16 g/dL) 10.5 L Hct (37 - 47 %) 32.2 L Julius Mendez M.D. at 1221 RPT #:[id number] END OF REPORT [id number] 08:36:00 [facility] Discharge Summary REPORT#:[id number] REPORT STATUS: Signed REPORT INITIALIZATION DATE:11/02/23 TIME: 835 PATIENT: ELMO CRESPO UNIT #: [id number] ROOM/BED: [address] : [birth year] AGE: 68 SEX: F ATTEND: Vadim Trinidad MD ADM AUTHOR: Robbie Madison APRN REPT SERVICE DT/TIME: 11/02/23 0836 * ALL edits or amendments must be made on the electronic/computer document * General Information Discharge date: 11/02/23 Discharge diagnosis: Left hip osteoarthritis Hospital course: Discharge Diagnosis: Left Hip Degenerative Disease Procedure: Left Hip Arthroplasty Hospital Course and Findings The patient underwent the procedure without incident. Findings were significant for degenerative disease of the hip. The patient was hemodynamically and medically monitored during the postoperative period. Anticoagulation was instituted for postoperative DVT prophylaxis. The patient was progressively able to tolerate PO pain medications and the appropriate diet. Physical therapy was instituted, with a progressive ability to ambulate and perform exercises. The patient was eventually deemed stable and safe for discharge. Despite factors which projected a longer hospital stay, the patient fulfilled criteria for earlier than expected discharge, including control of pain, early mobilization with therapy, and a stable hemodynamic status. At discharge, the patient was comfortable, with a controlled pain level. There were no chest or abdominal symptoms present. Discharge physical examination demonstrated stable vital signs and no acute distress. The patient had an intact wound with no significant drainage, and no calf tenderness and a negative Hilary s sign bilaterally. There were no neurologic or vascular deficits or changes from the preoperative state. Disposition: Discharged to home Discharge Condition: Stable Instructions: Instruction sheet given to patient Activity: Ambulate with assistance and walking aid, with weight-bearing as instructed in the hospital. Weight bearing limitations were reviewed with the patient during the hospitalization. Diet: As per preoperatively Prescriptions 1. Pain Medications: As per discharge prescription, with progressive weaning as pain decreases 2. Anticoagulation: As per discharge prescription, or PreOp anticoagulant, as discussed with patient Follow-up Appointment: Patient instructed to arrange appointment for an office visit in 2 weeks Med Rec Med Rec Discharge meds: Continue taking these medications: DULoxetine DR (CYMBALTA) 60 MG CAP.DR 60 MILLIGRAM ORAL DAILY. LEVOTHYROXINE (LEVOTHROID) 50 MCG TAB 50 MICROGRAM ORAL DAILY. LOSARTAN (LOSARTAN) 25 MG TAB 25 MILLIGRAM ORAL DAILY. ATORVASTATIN (LIPITOR) 20 MG TAB 20 MILLIGRAM ORAL BEDTIME. FOLIC ACID (FOLIC ACID) 1 MG TAB 1 MILLIGRAM ORAL DAILY. CALCIUM CARBONATE (CALTRATE 600 MG) 1 TAB TAB 600 MILLIGRAM ORAL DAILY. IRON (EZFE 200) 200 MG CAP 200 MILLIGRAM ORAL DAILY. CHOLECALCIFEROL (VITAMIN D3) (VITAMIN D3) 1,000 UNITS TAB 1,000 UNITS ORAL DAILY. PIOGLITAZONE/metFORMIN (ACTOPLUS MET 15/500 MG) 15 MG-500 MG TAB 1 TABLET ORAL DAILY. sitaGLIPtin/metFORMIN XR (JANUMET XR MG) 50 MG-1,000 MG TAB.ER.24H 1 TABLET ORAL TWICE DAILY. FAMOTIDINE (PEPCID) 40 MG TAB 40 MILLIGRAM ORAL TWICE DAILY. MELOXICAM (MOBIC) 15 MG TAB 15 MILLIGRAM ORAL DAILY. [HRT ] 1 CAPSULE ORAL DAILY. ACETAMINOPHEN/diphenhydrAMINE (TYLENOL PM) 500 MG-25 MG TAB 1 EACH ORAL BEDTIME. LACTOBACILLUS ACIDOPHILUS (PROBIOTIC ACIDOPHILUS) 1 CAP CAP 1 CAPSULE ORAL DAILY. Discharge Instructions PCP )( Discharge to: Home/Self Care Discharge Instructions Additional Discharge Routines: Attending Follow-Up, Wound/Dressing Care )( Diet: Resume Home Diet/Feeds, Regular )( Activity: Resume Normal Activity, As Tolerated, Do not Submerge Incision )( Wound/dressing care: Do not submerge incision, Leave dressing in place, OK to shower tomorrow Follow-up Appointments Attending Physician: Attending Physician: Vadim Trinidad MD Attending physician follow up timeframe: In 2-3 weeks Special instructions: Aspirin twice a day to prevent a blood clot Leave gauze dressing on for 72 hours. Leave glued dressing on until follow up. Ok to shower. CALL THE DOCTOR OFFICE TO SCHEDULE A FOLLOW-UP APPOINTMENT at 0836 at 1037 RPT #:[id number] END OF REPORT [id number] 17:56:00 [facility] Clinical Note REPORT#:[id number] REPORT STATUS: Signed REPORT INITIALIZATION DATE:11/01/23 TIME: 1755 PATIENT: ELMO CRESPO UNIT #: [id number] ROOM/BED: [address] : 54 AGE: 68 SEX: F ATTEND: Vadim Trinidad MD ADM AUTHOR: Julius Patricio MD REPT SERVICE DT/TIME: 11/01/231755 * ALL edits or amendments must be made on the electronic/computer document * Clinical Note Note: [facility] Julius Mendez MD (cell text [phone]) Internal Medicine Consult at request of : Dr. Vadim Trinidad. Chief Complaint: .left hip pain HPI: 68 yo F is now s/p Left Total Hip Arthroplasty by Dr. Trinidad. Ms. Crespo relates years of progressive left hip pain (recently severe), worse with activity, and popping crunchy with restricted motion at times in quality. She has failed conservative management. Comorbidities: see below. PmHx: .OsteoArthritis, sleep apnea- no CPAP, type 2 diabetes mellitus, hypothyroidism, hypertension, hyperlipidemia ALLERGY: Allergies: No Known Allergies (Coded, 11/01/23) Home Medications: Home Medications: PIOGLITAZONE/metFORMIN (ACTOPLUS MET 15/500 MG) 1 TAB PO DAILY sitaGLIPtin/metFORMIN XR (JANUMET XR MG) 1 TAB PO BID FAMOTIDINE (PEPCID) 40 MG PO BID MELOXICAM (MOBIC) 15 MG PO DAILY [HRT ] 1 CAP PO DAILY ACETAMINOPHEN/diphenhydrAMINE (TYLENOL PM) 1 EACH PO BEDTIME LACTOBACILLUS ACIDOPHILUS (PROBIOTIC ACIDOPHILUS) 1 CAP PO DAILY ESCITALOPRAM (LEXAPRO) 5 MG PO DAILY DULoxetine DR (CYMBALTA) 60 MG PO DAILY LEVOTHYROXINE (LEVOTHROID) 50 MCG PO DAILY LOSARTAN 25 MG PO DAILY ATORVASTATIN (LIPITOR) 20 MG PO BEDTIME FOLIC ACID 1 MG PO DAILY CALCIUM CARBONATE (CALTRATE 600 MG) 600 MG PO DAILY IRON (EZFE 200) 200 MG PO DAILY CHOLECALCIFEROL (VITAMIN D3) (VITAMIN D3) 1,000 UNITS PO DAILY SgHx: .Lumbar fusion, gastric bypass, breast surgery, hernia repair, finger surgery SHx: Tob: former smoker FHx: .No significant hx of DVT/PE. Alcohol: none Drugs: none Lives: with spouse . . Vitals: Vital Signs: Date Time Temp Pulse Resp B/P B/P Pulse O2 O2 Flow FiO2 Mean Ox Delivery Rate 10/31 1537 96.8 71 20 124/67 85.7 97 10/31 1500 96 Nasal 1 cannula 10/31 1148 98.2 90 14 120/70 86.9 97 Nasal cannula 10/31 1145 Nasal 3 99 cannula 10/31 1120 97.7 88 14 136/74 94.4 99 Nasal cannula 10/31 1100 98.4 86 14 143/63 98 Nasal 3 cannula 10/31 1053 Nasal 3 cannula 10/31 1045 98.4 86 13 149/68 97 Nasal 3 cannula 10/31 1030 89 12 147/66 100 Nasal 3 cannula 10/31 1015 90 12 151/68 100 Simple 6 mask 10/31 1004 Simple 6 mask 10/31 1004 98.6 76 13 119/56 99 Simple 6 mask 10/31 0645 97.4 68 16 136/79 95 Room air Gen: Alert, in mild discomfort. EYE: Nl lids conjunctiva. ENT: Nl ears Nose, nl lips,. Neck: Supple, nl thyroid, No masses. CV: Regular Rate Rhythm, no heave or significant murmur. Edema- none RESP: Clear to Auscultation, normal Respiratory effort. ABD: Soft, NonDistended,. LYM: No significant cervical lymphadenopathy. MS: No sign of compartment syndrome, hip dressing clean, drain in place. NEURO: Nonfocal, grossly normal sensation of LE, +Ankle DF/PF . . Preop Labs(10/11/23): CBC:. Hgb 12.2, Plt 259, CHEM: Na 137, K 4.6, Cr 1.16 (eGFR51 %), . Ekg: Normal sinus rhythm (medium to high risk of complications or morbidity) (major surgery) (IV sedative, meds) . Assessment Plan 1.) Anemia of Acute Blood Loss- .will recheck tomorrow. 2.) S/p Left GUTIERREZ- .acute multi-modal pain control and followup. Anticoagulation as per Dr. Trinidad. 3.) Hypertension- .follow BP and hold Rxs if SBP<120. 4.) OsteoArthritis Hyperlipidemia Hypothyroid Diabetes2- .continue on Rx. . Julius Mendez M.D. Thanks! . . . . . G8417 BMI documented as above normal parameters and a f/u plan is documented G9903 - Patient screened for tobacco use AND identified as a tobacco non-user 1123F - ACP disscussion - default code status while at [facility]. at 2002 RPT #:[id number] END OF REPORT [id number]:[id number] [address] PATIENT NAME: ELMO CRESPO ADMIT DATE: 11/01/23 ACCOUNT NO: [id number] ROOM NO: Y.515 AGE: 68 REPORT TYPE: OPERATIVE REPORT SEX: F ADMITTING PHYSICIAN:Vadim Trinidad MD ATTENDING PHYSICIAN:Vadim Trinidad MD OPERATION DATE: 11/01/2023 PREOPERATIVE DIAGNOSIS: Left hip osteoarthropathy. POSTOPERATIVE DIAGNOSIS: Left hip osteoarthropathy, M16.12. OPERATIVE PROCEDURES PERFORMED: 1. Computer-assisted imageless left total hip arthroplasty, . . IMPLANTS UTILIZED: DePuy total hip system, size 46 mm emphasis cup, standard liner, size 3 standard ACTIS femoral stem, 32 mm head +1 neck. Both the acetabular and femoral components were pressfit. ANESTHESIA: General. ESTIMATED BLOOD LOSS: Less than 20 mL. SURGEON: Vadim Trinidad M.D. STRAIGHTENER: ,Delilah OPA/LSA. OPERATIVE FINDINGS: As above. SURGICAL SPECIMENS SENT: None. CLINICAL INDICATIONS: Ms. Crespo is a 68-year-old female from [place], [place], who presents with severe and persistent left hip pain over the past 10 years. The pain has become quite disabling over the past 3 years. She is having pain on a daily basis. Her quality of life has greatly deteriorated. She has had no improvement despite extensive nonoperative treatment. She is admitted for computer-assisted imageless left total hip arthroplasty. OPERATIVE NARRATIVE: 1. COMPUTER-ASSISTED IMAGELESS LEFT TOTAL HIP ARTHROPLASTY, . . DESCRIPTION OF PROCEDURE: Ms. Crespo was brought to the operative suite, at which time she was placed in supine position on the OR table. Routine monitors were established. General anesthesia was delivered. After satisfactory induction of general anesthesia, the patient was placed in the right lateral decubitus position per Mr. Mazariegos. Pulses were checked and noted to be PATIENT NAME: ELMO CRESPO patent x4. The left hip was circumferentially prepped and draped in usual sterile fashion. Standard anterolateral Hardinge approach was performed. Iliotibial band was divided in line with the skin incision. The abductors were taken sharply off insertion on the greater trochanter. Anterior capsulotomy was performed. Femoral head was dislocated anteriorly. The femoral neck was resected 15 mm proximal to the lesser trochanter as per preoperative templating. The labrum was excised circumferentially from the acetabulum. Acetabular retractors were placed. Sequential reaming was performed to a size 45 mm reamer. Two percutaneous pins were then placed in superior aspect of the iliac crest. The OrthAlign guide was placed and the hip was registered. Under direct computer guidance, the acetabular component was placed in 40 degrees of abduction, 15 degrees of anteversion. Neutral polyethylene insert was then placed into the cup. Attention was then turned to the proximal femur. Sequential broaching was performed to a size 3 broach. Utilizing the broach as a trial, standard neck +1 length, 32 mm head was placed and the hip was reduced. Clinically, jainism of leg length and offset were achieved. No impingement was noted. No instability was present. Intraoperative x-rays confirmed jainism of leg length and offset with optimal positioning of the implants. The hip was dislocated, the broach was removed and the formal size 3 ACTIS femoral component was press-fit. The 32 mm head, +1.5 neck was placed and the hip was reduced. Copious antibiotic lavage was performed. The abductors were meticulously repaired utilizing #5 Ethibond suture incorporating a transosseous suture technique. Medium Hemovac drain was then placed deep to the IT band. The IT band was closed in watertight fashion [id number] #5 Ethibond suture. Skin closed with interrupted 0 Vicryl followed by 2-0 Vicryl, followed by Ethicon Efraín as per Mr. Mazariegos. Postoperative anesthetic injection performed by Mr. Mazariegos. Sterile dressing was applied by Mr. Mazariegos. The patient was then extubated to recovery room awake and alert without any anesthetic or operative complications. At the end of the case, sponge and needle counts were correct x2. During the procedure, Mr. Mazariegos was invaluable in positioning the patient along with preparation and draping of extremity. He was also vital providing surgical exposure throughout the procedure, which greatly expedited the performance of the procedure in addition to protection of neurovascular structures. Finally, he was responsible for closure of the postoperative incisions, postoperative anesthetic injection and application of postoperative dressing. Utilizing the OrthAlign computer guidance system allows precise placement of the acetabular component, which could be essential for both short-term and long-term success of the implant. Dictated By: Vadim Trinidad MD Date Dictated: 11/01/2023 09:56:30 Date Transcribed: 11/01/2023 10:18:44 RLB/ PATIENT NAME: ELMO CRESPO Receipt ID: [id number] Authenticated by Vadim Trinidad MD On 11/01/2023 11:49:06 AM at 1149 PATIENT NAME: ELMO CRSEPO 06:21:00 [facility] Brief Op Note REPORT#:[id number] REPORT STATUS: Signed REPORT INITIALIZATION DATE:11/01/23 TIME: 620 PATIENT: ELMO CRESPO UNIT #: [id number] ROOM/BED: : 54 AGE: 68 SEX: F ATTEND: Vadim Trinidad MD ADM AUTHOR: Vadim Trinidad MD REPT SERVICE DT/TIME: 11/01/23 0621 * ALL edits or amendments must be made on the electronic/computer document * Op/Inv Proc Note - Brief Pre-procedure diagnosis: Left hip osteoarthritis Post-procedure diagnosis: same as pre procedure dx Procedures performed: Left total hip arthroplasty Primary Surgeon: Dr Vadim Trinidad Curatorial Assistant(s): Patrick FLANNERY Findings: See full dictation Complications: none Estimated blood loss in ml's: 25cc Specimens removed/altered: none at 0621 RPT #:[id number] END OF REPORT [id number]:[id number] [facility] [place] [address] PATIENT NAME: ELMO CRESPO ADMIT DATE: 11/01/23 ACCOUNT NO: [id number] ROOM NO: Y.998 AGE: 68 REPORT TYPE: HISTORY AND PHYSICAL SEX: F ADMITTING PHYSICIAN:Vadim Trinidad MD ATTENDING PHYSICIAN:Vadim Trinidad MD ADMISSION DATE: 11/01/2023 10:30:00 ADMITTING DIAGNOSIS: Left hip osteoarthritis, M16.12. HISTORY OF PRESENT ILLNESS: Ms. Crespo is a 68-year-old female who has been having severe and progressive pain involving her left hip for the past several years. She is experiencing pain on a daily basis. Her pain has been refractory to nonoperative treatment. Due to her progressive disability and lack of response to nonoperative intervention, Ms. Crespo is admitted for a computer-assisted imageless left total hip arthroplasty. PAST MEDICAL HISTORY: Arthritis, depression, diabetes, thyroid disease. PAST SURGICAL HISTORY: Surgeries include a lumbar laminectomy, carpal tunnel release, herniorrhaphy, and hysterectomy. FAMILY HISTORY: Arthritis, hypertension, coronary artery disease. SOCIAL HISTORY: She is a former smoker. She drinks occasionally. ALLERGIES: NO ALLERGIES ARE LISTED. MEDICATIONS: Atorvastatin, estradiol, Janumet, levothyroxine, losartan. REVIEW OF SYSTEMS: Negative. PHYSICAL EXAMINATION: She is 5 feet 3 inches tall, she weighs 63.5 kg. Orthopedic evaluation reveals an antalgic gait. She has a 5 mm leg length inequality. She has painful rotation of the left hip. She has limited range of motion. Her distal neurovascular status is intact. IMAGING: Radiographic evaluation revealed severe osteoarthropathy involving the left hip. ASSESSMENT: Left hip pain secondary to severe osteoarthritis. SURGICAL PLAN: Computer-assisted imageless left total hip arthroplasty. I have gone over at length with the patient the associated risks involved with this procedure. She understands that these risks include but are not limited to bleeding, infection, neurovascular damage, persistent pain, loss of motion, need for further operative intervention, leg length inequality, loosening of the prosthesis requiring possible revision, painful scar, persistent limp, PATIENT NAME: ELMO CRESPO dislocation of the prosthesis, deep vein thrombi leading to pulmonary emboli along with complications secondary to anesthesia. Furthermore, she understands that there are absolutely no guarantees or warranties that she would be pain free as a result of this procedure. She understands that she will receive press-fit fixation of both the acetabular and femoral components. She further understands that her blood sugars will be monitored both preoperatively and postoperatively and that it is imperative that she monitor her and manage her glucose in order to prevent postoperative morbidity. She accepts these risks and gives her informed consent to proceed. Dictated By: Vadim Trinidad MD Date Dictated: 10/30/2023 17:45:23 Date Transcribed: 10/30/2023 18:12:52 RLB/RAG Receipt ID: [id number] Authenticated by Vadim Trinidad MD On 11/01/2023 09:49:15 AM at 0949 PATIENT NAME: ELMO CRESPO 11:15:[id number]- [id number] [place] [address] PATIENT NAME: ELMO CRESPO ADMIT DATE: ACCOUNT NO: [id number] ROOM NO: AGE: 68 REPORT TYPE: ELECTROCARDIOGRAM SEX: F ADMITTING PHYSICIAN: ATTENDING PHYSICIAN:Vadim Trinidad MD Order: [id number] Test Reason : PREOP CLEARANCE HTN Test Date/Time Stamp: TueOct 11 2023 11:15:26 Blood Pressure : / mmHG Vent. Rate : 065 BPM Atrial Rate : 065 BPM P-R Int : 156 ms QRS Dur : 080 ms QT Int : 422 ms P-R-T Axes : 073 077 066 degrees QTc Int : 438 ms Normal sinus rhythm Normal ECG No previous ECGs available Confirmed by JOHNATHON CEDENO MD ([id number]) on 10/14/2023 8:53:25 AM Referred By: Vadim Trinidad Confirmed by:JOHNATHON CEDENO MD PATIENT NAME: ELMO CRESPO 10:[id number]- [id number] [place] [address] PATIENT NAME: ELMO CRESPO ADMIT DATE: 12/11/18 ACCOUNT NO: [id number] ROOM NO: AGE: 63 REPORT TYPE: OPERATIVE REPORT SEX: F ADMITTING PHYSICIAN: ATTENDING PHYSICIAN:Wilver Starkey MD OPERATION DATE: 12/11/2018 PREOPERATIVE DIAGNOSES: 1. Right index finger trigger. 2. Right middle finger trigger. 3. Left middle finger trigger. 4. Left ring finger trigger. POSTOPERATIVE DIAGNOSES: 1. Right index finger trigger. 2. Right middle finger trigger. 3. Left middle finger trigger. 4. Left ring finger trigger. TITLE OF OPERATION: 1. Right index finger trigger annular maxi release. 2. Right middle finger trigger annular maxi release. 3. Left middle finger trigger steroid injection. 4. Left ring finger steroid injection. SURGEON: Wilver Starkey MD. ELECTRONIC SCALE TESTER: ANESTHESIA: IV sedation, [facility] Section and 1% metacarpal block administered to the right index and middle finger metacarpals [address] Wilver Starkey. INDICATION: A 63-year-old white female with triggering of her right index and right middle finger with locking and intermittent triggering of her left middle and her left ring finger to undergo a right index and middle finger trigger release and left middle and ring finger trigger steroid injection. PROCEDURE IN DETAIL: After satisfactory IV sedation, the right index and middle finger were administered a 10 mL of 1% lidocaine metacarpal block by Dr. Wilver Starkey. The right hand was then prepped and draped in the usual orthopedic fashion. All dissection was performed under 2-1/2 power magnification. Hand was exsanguinated with compression and a wrist tourniquet inflated to 225 mmHg. A transverse incision was made in the distal palmar crease of the right index and right middle finger, dissected down through skin and subcutaneous tissue. Neurovascular bundles were protected. Bleeding controlled with Bovie cautery. PATIENT NAME: ELMO CRESPO Annular maxi A1 was released on the index finger and the middle finger. Traction lysis of the flexor tendons allowed good excursion without triggering. Wounds were irrigated with saline and bacitracin. A 0.25% Marcaine, epinephrine and Kenalog solution 5 mL was placed along the flexor tendinosis and skin closed with 4-0 nylon mattress sutures. Bulky compression dressing and Chapin wrap was applied. Tourniquet was released on the wrist after approximately 15 minutes with good capillary refill of the fingertips. The left middle finger and the left ring finger trigger were then injected with 0.25% Marcaine, epinephrine and Kenalog solution 3 mL each. The patient tolerated all procedures well and returned to recovery room in satisfactory condition. Dictated By: Wilver Starkey MD WT: OP:MAURICIO/AICHA/EUGENIE Conf#: [id number]/DID#: [id number] Authenticated and Edited by Wilver Starkey MD On 12/12/18 7:28:47 AM at 0731 PATIENT NAME: ELMO CRESPO
--- NOTE | 2024-07-26 16:30 | RAD REPORT ---
EXAM: Right upper quadrant ultrasound. CLINICAL HISTORY: Abdominal pain COMPARISON: 2019 FINDINGS: A stone is present within the gallbladder neck. Mild gallbladder wall thickening. Mild gallbladder distention. Biliary tree normal caliber IMPRESSION: Cholelithiasis. Mildly thickened gallbladder wall may indicate cholecystitis
[2024-07-26] MEDS ORDERED: FAMOTIDINE 20 MG/2 ML VIAL IV ONE (16:35)
[2024-07-26] MEDS ORDERED: DIPHENHYDRAMINE 50 MG/ML VIAL ONE (16:35)
[2024-07-26] MEDS ORDERED: METOCLOPRAMIDE 10 MG/2mL INJ ONE (16:35)
[2024-07-26 16:44] LABS: Absolute Basophils 0.1 K/uL (0-0.5); Absolute Eosinophils 0.1 K/uL (0-0.5); Absolute Lymphocytes (CBC) 1.2 K/uL (0.7-4.9); Absolute Neutrophil 12.3 K/uL (1.8-8.0); Basophils % 0.7 % (0-1.3); Hematocrit 43.7 % (36.0-45.0); Hemoglobin 14.7 g/dL (12.0-15.0); MCH 31.6 pg (27.0-35.0); MCHC 33.6 g/dL (32.0-36.0); MCV 94.1 fL (80-100); MPV 9.3 fL (7.6-11.3); Monocytes % 6.9 % (3.3-12.3); Neutrophils % 83.4 % (41.7-73.7); Platelets 318 thou/uL (152-406); RBC Red Blood Cell Count 4.64 M/uL (3.86-4.86); Red Cell Distribution Width 14.3 % (12.1-15.2)
[2024-07-26 16:46] LABS: Specific Gravity 1.027 (1.005-1.030); Sqamous Epithelial <5 /HPF (None Seen); Urine Bacteria <20 /HPF (<20); Urine Bilirubin NEGATIVE (Negative); Urine Blood Negative (Negative); Urine Clarity Extremely Turbid (Clear); Urine Color Yellow (Yellow); Urine Crystals Unidentified Few /HPF (None Seen); Urine Culture Reflex Order NOT NEEDED; Urine Glucose NEGATIVE (Negative); Urine Ketones 1+ (Negative); Urine Microscopic Reflex YN ORDER UMIC; Urine Mucus Slight /HPF (None Seen); Urine Nitrite NEGATIVE (Negative); Urine Protein 1+ (Negative); Urine RBC <5 /HPF (None Seen); Urine Urobilinogen 1+ (Normal); Urine WBC <5 /HPF (<5); Urine WBC Clump Rare /HPF (None Seen); Urine Yeast (Budding) Trace /HPF (None Seen)
[2024-07-26 17:01] LABS: ALT/SGPT 28 U/L (13-56); AST/SGOT 14 U/L (15-37); Albumin 4.6 g/dL (3.4-5.0); Alkaline Phosphatase 85 U/L (45-117); Anion Gap 11.5 mEq/L (5.0-15.0); BUN Blood Urea Nitrogen 12 mg/dL (7-18); Bicarbonate 25 mEq/L (21-32); Globulin 4.6 g/dL (2.3-3.5); Glomerular Filtration Rate 36 ml/min (=/>90); Glucose Level 108 mg/dL (74-106); Lipase 45 U/L (13-75); Potassium 3.5 mEq/L (3.5-5.1); Protein, Total 9.2 g/dL (6.4-8.2); Sodium Level 135 mEq/L (136-145); Troponin High Sensitivity < 3.0 pg/mL (<58.9)
--- NOTE | 2024-07-26 17:33 | EDPHYS ---
Physician Documentation [facility] Name: Omayra Brandon Age: 69 yrs Sex: Female : 1955 Arrival Date: 07/26/2024 Time: 14:30 Bed 15 Private MD: ED Physician HPI: 07/26 15:45 This 69 yrs old Female presents to ER via Ambulatory with complaints of Abdominal Pain. cp 15:45 The patient presents with abdominal pain in the upper abdomen. cp 15:45 Onset: The symptoms/episode began/occurred this past Tuesday. The symptoms radiate to back. Associated signs and symptoms: Pertinent positives: anorexia, nausea, Pertinent negatives: chest pain, constipation, diarrhea, fever, vomiting blood, active vomiting. The symptoms are described as waxing/waning. Modifying factors: the symptoms are aggravated by food. Severity of pain: in the emergency department the pain is unchanged despite home interventions. Historical: - Allergies: 15:32 No Known Allergies; iw - PMHx: 15:32 Hypertensive disorder; Diabetes mellitus; Hypothyroidism; iw - PSHx: 15:32 gastric bypass; left hip; iw - Immunization history:: Adult Immunizations up to date. - Infectious Disease History:: Denies. - Social history:: Smoking status: Patient denies any tobacco usage or history of. ROS: 15:50 Constitutional: Positive for poor PO intake, Negative for body aches, chills, fever, cp 15:50 Eyes: Negative for injury, pain, redness, and discharge, cp 15:50 ENT: Negative for drainage from ear(s), ear pain, sore throat, difficulty swallowing, difficulty handling secretions, 15:50 Cardiovascular: Negative for chest pain, palpitations, 15:50 Respiratory: Negative for cough, shortness of breath, wheezing, 15:50 Abdomen/GI: Positive for abdominal pain, nausea, anorexia, Negative for diarrhea, constipation, active vomiting, 15:50 Neuro: Negative for altered mental status, headache, numbness, syncope, weakness, 15:50 All other systems are negative, Exam: 15:55 Constitutional: The patient appears in no acute distress, alert, awake, cp non-diaphoretic, non-toxic, well developed, well nourished, uncomfortable, 15:55 Head/Face: Normocephalic, atraumatic. cp 15:55 Eyes: Periorbital structures: appear normal, Conjunctiva: normal, no exudate, no injection, Sclera: no appreciated abnormality, Lids and lashes: appear normal, bilaterally, 15:55 ENT: External ear(s): are unremarkable, Nose: is normal, Mouth: Lips: moist, Oral mucosa: moist, Posterior pharynx: Airway: no evidence of obstruction, patent, 15:55 Chest/axilla: Inspection: normal, Palpation: crepitus, is not appreciated, tenderness, is not appreciated, 15:55 Cardiovascular: Rate: normal, Rhythm: regular, 15:55 Respiratory: the patient does not display signs of respiratory distress, Respirations: normal, no use of accessory muscles, no retractions, labored breathing, is not present, Breath sounds: are clear throughout, no decreased breath sounds, no stridor, no wheezing, 15:55 Abdomen/GI: Inspection: abdomen appears normal, Bowel sounds: active, all quadrants, Palpation: soft, in all quadrants, moderate abdominal tenderness, in the epigastric area, right upper quadrant and left upper quadrant, rebound tenderness, is not appreciated, voluntary guarding, is elicited in the epigastric area, right upper quadrant and left upper quadrant, 15:55 Back: CVA tenderness, is absent, 15:55 Neuro: Orientation: to person, place \T\ time. Mentation: is normal, Motor: moves all fours, strength is normal, Gait: is steady, 19:58 ECG was reviewed by the Attending Physician. cp Vital Signs: 15:31 BP 112 / 72; Pulse 82; Resp 18; Temp 97.9; Pulse Ox 100% on R/A; Pain 10/10; iw 19:30 BP 126 / 82; Pulse 88; Resp 17; Temp 98; Pulse Ox 100% on R/A; Pain 0/10; rg5 15:31 Pain Scale: Adult iw 19:30 Pain Scale: Adult rg5 MDM: 15:30 Medical Screening Exam initiated cp 16:00 Differential diagnosis: AAA, acute coronary syndrome, cholecystitis, Cholelithiasis, cp non-specific abd pain, pancreatitis, Peptic Ulcer Disease, Perf. Duodenal Ulcer, Perf. Gastric Ulcer, Pyelonephritis, Ureterolithiasis, urinary tract infection. 17:35 Data reviewed: vital signs, nurses notes, lab test result(s), EKG, radiologic studies, cp plain films, ultrasound, and as a result, I will admit patient. 17:35 Consideration of Admission/Observation Patient was admitted/placed on observation. cp Management of patient was discussed with the following: District Plant Supervisor: DR Jamison with provide surgical consultation after discussion and patient to be admitted to service of pcp, DR Miller. I considered the following discharge prescriptions or medication management in the emergency department Medications were administered in the Emergency Department. See MAR. Care significantly affected by the following chronic conditions: Diabetes, Hypertension. Counseling: I had a detailed discussion with the patient and/or guardian regarding the historical points, exam findings, and any diagnostic results supporting the discharge/admit diagnosis, lab results, radiology results, the need for further work-up and treatment in the hospital. Response to treatment: the patient's symptoms have mildly improved after treatment. 07/26 15:38 Order name: CBC with Diff; Complete Time: 17:18 cp 07/26 15:38 Order name: CMP; Complete Time: 17:18 cp 07/26 15:38 Order name: Lipase; Complete Time: 17:18 cp 07/26 15:38 Order name: Urinalysis w/ reflexes; Complete Time: 17:18 cp 07/26 15:38 Order name: Troponin High Sensitivity; Complete Time: 17:18 cp 07/26 18:37 Order name: Basic Metabolic Panel EDLA 07/26 18:37 Order name: Basic Metabolic Panel EDLA 07/26 18:37 Order name: CBC with Automated Diff EDLA 07/26 18:37 Order name: CBC with Automated Diff EDLA 07/26 18:37 Order name: Lipase EDLA 07/26 18:37 Order name: Lipase EDLA 07/26 18:37 Order name: Liver (Hepatic) Function EDLA 07/26 18:37 Order name: Liver (Hepatic) Function EDLA 07/26 15:38 Order name: Abdomen Limited US: gallbladder; Complete Time: 17:18 cp 07/26 17:19 Interpretation: Report reviewed. cp 07/26 18:37 Order name: CONS Physician Consult EDLA 07/26 15:38 Order name: IV Saline Lock; Complete Time: 16:39 cp 07/26 15:38 Order name: Labs collected and sent; Complete Time: 16:39 cp 07/26 15:38 Order name: EKG - Nurse/Tech; Complete Time: 19:50 cp 07/26 15:38 Order name: NPO; Complete Time: 16:42 cp EC:58 Rate is 64 beats/min. Rhythm is regular. HI interval is normal. QRS interval is normal. cp QT interval is normal. T waves are Inverted in lead aVR. Interpreted by me. Reviewed by me. Administered Medications: 16:42 Drug: metoCLOPramide IVP 10 mg IVP once; over 1 to 2 minutes Route: IVP; Site: left aa5 forearm; 16:50 Follow up: Response: No adverse reaction aa5 16:42 Drug: diphenhydrAMINE IVP 12.5 mg IVP once Route: IVP; Site: left forearm; aa5 16:50 Follow up: Response: No adverse reaction aa5 16:43 Drug: Famotidine IVP 20 mg IVP once; dilute with 10 mL 0.9% NaCl; give over 2 minutes aa5 Route: IVP; Site: left forearm; 16:50 Follow up: Response: No adverse reaction aa5 18:59 Drug: NS 0.9% IV 500 ml 500 ml IV at 1 bolus once; to be given as a bolus over 30 ph minutes Volume: 500 ml; Route: IV; Rate: 1 bolus; Site: left forearm; 21:10 Follow up: IV Status: Completed infusion; IV Intake: 500ml rg5 18:59 Drug: cefOXitin IVPB 1 grams IVPB once over 30 mins; (mix in 50 mL NS) Route: IVPB; ph Infused Over: 30 mins; Site: left forearm; 21:10 Follow up: IV Status: Completed infusion; IV Intake: 100ml rg5 21:10 Follow up: Response: No adverse reaction; IV Status: Completed infusion ha1 19:45 Drug: metroNIDAZOLE IVPB 500 mg 100 ml IVPB once over 30 mins Volume: 100 ml; Route: rg5 IVPB; Infused Over: 30 mins; Site: left forearm; 21:09 Follow up: IV Status: Completed infusion; IV Intake: 100ml rg5 Disposition Summary: 07/26/24 17:32 Hospitalization Ordered Notes: Hospitalization Status: Inpatient Admission cp Provider: Manfred Miller cp Location: Telemetry/[facility] (Inpatient) cp Condition: Stable cp Problem: new cp Symptoms: have improved cp Bed/Room Type: Standard cp Room Assignment: 209(07/26/24 19:35) iw Diagnosis - Calculus of gallbladder with acute cholecystitis without obstruction cp - Nausea with vomiting, unspecified cp - Epigastric pain cp Forms: - Medication Reconciliation Form cp - SBAR form cp - Leadership Thank You Letter cp Addendum: 07/31/2024 11:15 I was immediately available for consultation during this patient's visit. I did not e c2 personally see the patient or discuss the patient with the KANDI. . Signatures: Dispatcher [employer] Camille Obrien RN RN iw Sue Grace RN RN aa5 Anaya Chavez RN RN ph Collins Johnson, MAISHA PA cp Woo Staples MD MD ec2 Александр Edward RN RN rg5 Elizabeth Rand RN ha1 Corrections: (The following items were deleted from the chart) 07/26 15:38 15:38 Abdomen Limited+US.RAD.BRZ ordered. EDLA EDLA 19:35 17:32 cp iw
--- NOTE | 2024-07-26 17:33 | ER ---
Nurse's Notes [facility] Name: Omayra Brandon Age: 69 yrs Sex: Female : 1955 Arrival Date: 07/26/2024 Time: 14:30 Bed 15 Private MD: Diagnosis: Calculus of gallbladder with acute cholecystitis without obstruction;Nausea with vomiting, unspecified;Epigastric pain Presentation: 07/26 15:31 Chief complaint: Patient states: upper abd pain since Tuesday . worse when eating. iw Coronavirus screen: At this time, the client does not indicate any symptoms associated with coronavirus-19. Ebola Screen: No symptoms or risks identified at this time. Initial Sepsis Screen: Does the patient meet any 2 criteria? No. Patient's initial sepsis screen is negative. Does the patient have a suspected source of infection? No. Patient's initial sepsis screen is negative. Risk Assessment: Do you want to hurt yourself or someone else? Patient reports no desire to harm self or others. Onset of symptoms was July 23, 2024. 15:31 Method Of Arrival: Ambulatory iw 15:31 Acuity: CHRISTINE 3 iw Historical: - Allergies: 15:32 No Known Allergies; iw - PMHx: 15:32 Hypertensive disorder; Diabetes mellitus; Hypothyroidism; iw - PSHx: 15:32 gastric bypass; left hip; iw - Immunization history:: Adult Immunizations up to date. - Infectious Disease History:: Denies. - Social history:: Smoking status: Patient denies any tobacco usage or history of. Screenin:00 [facility] ED Fall Risk Assessment (Adult) History of falling in the last 3 months, ph including since admission No falls in past 3 months (0 pts) Confusion or Disorientation Yes (5 pts) Intoxicated or Sedated No (0 pts) Impaired Gait No (0 pts) Mobility Assist Device Used No (0 pt) Altered Elimination No (0 pt) Score/Fall Risk Level 0 - 2 = Low Risk Oriented to surroundings, Maintained a safe environment, Hourly rounding (assess needs \T\ fall precautionary measures) done. Abuse screen: Denies threats or abuse. Denies injuries from another. Nutritional screening: No deficits noted. Tuberculosis screening: No symptoms or risk factors identified. Assessment: 16:40 Reassessment: Patient is alert, oriented x 3, equal unlabored respirations, skin aa5 warm/dry/pink. General: Appears comfortable. 18:59 General: Appears in no apparent distress. comfortable, well groomed, Behavior is calm, ph cooperative, appropriate for age. Pain: Complains of pain in epigastric area Pain radiates to right upper quadrant. Neuro: Level of Consciousness is awake, alert, obeys commands, Oriented to person, place, time, situation. Cardiovascular: Capillary refill < 3 seconds in bilateral fingers Patient's skin is warm and dry. Respiratory: Airway is patent Respiratory effort is even, unlabored, Respiratory pattern is regular, symmetrical. GI: Abdomen is non-distended, Bowel sounds present X 4 quads. Abd is soft X 4 quads Reports upper abdominal pain, epigastric pain, nausea. Derm: Skin is pink, warm \T\ dry. Vital Signs: 15:31 BP 112 / 72; Pulse 82; Resp 18; Temp 97.9; Pulse Ox 100% on R/A; Pain 10/10; iw 19:30 BP 126 / 82; Pulse 88; Resp 17; Temp 98; Pulse Ox 100% on R/A; Pain 0/10; rg5 15:31 Pain Scale: Adult iw 19:30 Pain Scale: Adult rg5 ED Course: 14:34 Patient arrived in ED. al6 14:47 Collins Johnson PA is PHCP. cp 14:47 Woo Staples MD is Attending Physician. cp 15:32 Triage completed. iw 15:33 Arm band placed on. iw 16:21 Abdomen Limited US: gallbladder In Process Unspecified. EDMS 16:39 CBC with Diff Sent. cc6 16:39 CMP Sent. cc6 16:39 Lipase Sent. cc6 16:39 Urinalysis w/ reflexes Sent. cc6 16:45 Initial lab(s) drawn, by ms, sent to lab. Urine collected: clean catch specimen. cc6 Inserted saline lock: 22 gauge in left forearm, using aseptic technique. Blood collected. Flushed with 10 mL NS. 17:31 Manfred Miller MD is Hospitalizing Provider. cp 18:18 Anaya Chavez, RN is Primary Nurse. ph 19:00 Александр Edward, ASTON is Primary Nurse. rg5 19:01 Patient has correct armband on for positive identification. Placed in gown. Bed in low ph position. Call light in reach. Side rails up X 1. Pulse ox on. NIBP on. Door closed. Noise minimized. Warm blanket given. 19:01 No provider procedures requiring assistance completed. Patient admitted, IV remains in ph place. 20:21 Primary Nurse role handed off by Anaya Chavez RN rv1 20:21 Attending Physician role handed off by Woo Staples MD rv1 21:10 Provided Education on: POST ER CARE. rg5 Administered Medications: 16:42 Drug: metoCLOPramide IVP 10 mg IVP once; over 1 to 2 minutes Route: IVP; Site: left aa5 forearm; 16:50 Follow up: Response: No adverse reaction aa5 16:42 Drug: diphenhydrAMINE IVP 12.5 mg IVP once Route: IVP; Site: left forearm; aa5 16:50 Follow up: Response: No adverse reaction aa5 16:43 Drug: Famotidine IVP 20 mg IVP once; dilute with 10 mL 0.9% NaCl; give over 2 minutes aa5 Route: IVP; Site: left forearm; 16:50 Follow up: Response: No adverse reaction aa5 18:59 Drug: NS 0.9% IV 500 ml 500 ml IV at 1 bolus once; to be given as a bolus over 30 ph minutes Volume: 500 ml; Route: IV; Rate: 1 bolus; Site: left forearm; 21:10 Follow up: IV Status: Completed infusion; IV Intake: 500ml rg5 18:59 Drug: cefOXitin IVPB 1 grams IVPB once over 30 mins; (mix in 50 mL NS) Route: IVPB; ph Infused Over: 30 mins; Site: left forearm; 21:10 Follow up: IV Status: Completed infusion; IV Intake: 100ml rg5 21:10 Follow up: Response: No adverse reaction; IV Status: Completed infusion ha1 19:45 Drug: metroNIDAZOLE IVPB 500 mg 100 ml IVPB once over 30 mins Volume: 100 ml; Route: rg5 IVPB; Infused Over: 30 mins; Site: left forearm; 21:09 Follow up: IV Status: Completed infusion; IV Intake: 100ml rg5 Medication: 19:01 VIS not applicable for this client. ph Intake: 21:09 IV: 100ml; Total: 100ml. rg5 21:10 IV: 100ml; Total: 200ml. rg5 21:10 IV: 500ml; Total: 700ml. rg5 Outcome: 17:32 Decision to Hospitalize by Provider. cp 21:09 Admitted to Tele accompanied by tech, via stretcher, room 409, ha1 21:09 Condition: stable 21:09 Instructed on the need for admit, Demonstrated understanding of instructions, 21:10 Admitted to Med/surg accompanied by tech, via wheelchair, rg5 21:10 Condition: stable 21:10 Instructed on the need for admit, 21:11 Patient left the ED. rg5 Signatures: Dispatcher [employer] EDCamille Gutierrez, RN RN Sue Grace RN RN aa5 Anaya Chavez RN RN Collins Chaidez PA PA cp Elizabeth Rand, RN RN ha1 Kiley Eden rv1 Александр Edward, RN RN rg5 Elizabeth José cc6 Polly Cortez al6 Corrections: (The following items were deleted from the chart) 20:25 20:18 Patient left the ED. rg5 rg5 20:26 20:25 Александр Edward, RN is Primary Nurse. rg5 rg5
[2024-07-26] MEDS ORDERED: MORPHINE 2 MG/ML SYR IV PRN (18:43)
[2024-07-26] MEDS ORDERED: CEFOXITIN SODIUM 1 GM/VIAL ONE (18:43)
[2024-07-26] MEDS ORDERED: NA CHLORIDE 0.9% 0 ML ONE (18:44)
[2024-07-26] MEDS ORDERED: METRONIDAZOLE 500mg IVPB 500 MG/100 ML BAG IV ONE (18:44)
[2024-07-26] MEDS ORDERED: NA CHLORIDE 0.9% 500 ML ONE (18:44)
[2024-07-26] MEDS ORDERED: MORPHINE 4 MG/ML SYR IV PRN (18:49)
[2024-07-26] MEDS: NA CHLORIDE 0.9% 1,000 ML IV SCH (21:55)
[2024-07-26] MEDS: HYDROMORPHONE HCL 0.5 MG/0.5 ML INJ IV PRN (21:56)
[2024-07-26] MEDS: ONDANSETRON 4 MG/2 ML VIAL IV PRN (22:38)
[2024-07-26 23:24] VITALS: BMI 23.0
[2024-07-27 04:50] LABS: Absolute Basophils 0.1 K/uL (0-0.5); Absolute Eosinophils 0.1 K/uL (0-0.5); Absolute Lymphocytes (CBC) 1.2 K/uL (0.7-4.9); Absolute Monocytes 0.8 K/uL (0.1-1.3); Absolute Neutrophil 5.8 K/uL (1.8-8.0); Basophils % 0.8 % (0-1.3); Eosinophils % 1.8 % (0-4.4); Hematocrit 35.6 % (36.0-45.0); Hemoglobin 12.2 g/dL (12.0-15.0); Lymphocytes % 14.9 % (15.3-44.8); MCH 32.2 pg (27.0-35.0); MCHC 34.3 g/dL (32.0-36.0); MCV 93.9 fL (80-100); Monocytes % 9.9 % (3.3-12.3); Neutrophils % 72.6 % (41.7-73.7); Platelets 183 thou/uL (152-406); RBC Red Blood Cell Count 3.79 M/uL (3.86-4.86); Red Cell Distribution Width 13.9 % (12.1-15.2)
[2024-07-27 05:13] LABS: Albumin 3.3 g/dL (3.4-5.0); Albumin/Globulin Ratio 0.9 (1.1-1.8); Anion Gap 8.3 mEq/L (5.0-15.0); Bilirubin Direct 0.2 mg/dL (0-0.2); Bilirubin Indirect, Calculated 0.5 mg/dL (0.2-0.8); Bilirubin Total 0.7 mg/dL (0.2-1.0); Globulin 3.6 g/dL (2.3-3.5); Potassium 4.3 mEq/L (3.5-5.1); Protein, Total 6.9 g/dL (6.4-8.2)
--- NOTE | 2024-07-27 07:57 | PREOPCON ---
Date of Consultation: 07/26/2024 Reason For Consultation: Abdominal pain. History Of Present Illness: The patient is a 69-year-old female, presented to the emergency room wit h approximately 4-day history of epigastric abdominal pain, radiating to the back, postprandial in na ture, associated with nausea, but no vomiting. She did have bloating. No belching or heartburn. No diarrhea or constipation. No blood in her stool. No dysuria, hematuria. No sore throat, runny nos e, cough, headaches, or dizziness. No chest pain. No fever or chills. Review of Systems: Otherwise unremarkable. Past Medical History: Significant for hypertension, diabetes type 2, hypothyroidism. Past Surgical History: Laparoscopic gastric bypass in 2008, left hip surgery, hysterectomy, and back surgery. Allergies: NO ALLERGIES. Social History: The patient denies smoking or drinking alcohol. Family History: Noncontributory. Physical Examination: Vital Signs: Stable. She is afebrile. General: She is awake, alert, and oriented x3. Head and Neck: There is no evidence of icterus. No neck masses. No JVD. Throat clear. Neck is kimbrough pple. Chest: Clear. Heart: S1, S2. Abdomen: Soft, nondistended. Positive bowel sounds. Mild tenderness in the right upper quadrant. No rebound or rigidity. No Shay sign at this time. Extremities: Adequately perfused. Nontender. Neuro: Nonfocal. Laboratory Data: Reviewed. White count on admission was 14.8 with a left shift. This morning, it i s 8 and the left shift has improved. Chemistry reviewed. The patient's LFTs and lipase are within n ormal limits. Electrolytes are also noted. She had an ultrasound done yesterday, which shows cholel ithiasis with mild thickening of the gallbladder and stone is present within the gallbladder neck, wh ich probably indicates cholecystitis. Assessment: Acute cholecystitis and cholelithiasis. Plan: Admit. N.p.o. IV fluid. IV antibiotics. To the OR for laparoscopic cholecystectomy, possib le open. The patient understands risks, benefits, and alternatives and agrees to procedure. /MODL Voice ID: [id number] Report ID: [id number]
--- NOTE | 2024-07-27 09:12 | PN ---
Date of Progress Note: 07/27/2024 Subjective: The patient was seen this morning for followup. No new complaints or problems reported by her. She continues to have epigastric abdominal pain, but pain medication helps her. No new prob lems or complaints reported this morning. Objective: Vital Signs: Reviewed. HEENT: Unremarkable. Lungs: Clear to auscultation. Heart: Sounds normal. Abdomen: Soft. Bowel sounds normal. No guarding, rigidity. No distention. No rebound tenderness. The patient has mild tenderness in epigastric region. Extremities: No leg edema. Laboratory Data: Today, white count 8, hemoglobin 12.2, platelets 183. Sodium 139, potassium 4.3, c hloride 109, bicarb 26, BUN 13, creatinine 1.35, glucose 83. Liver function tests unremarkable. Lip ase 31. Impression: 1. Cholelithiasis with acute cholecystitis. 2. Hypertension. 3. Type 2 diabetes mellitus. 4. Chronic kidney disease stage IIIA. Plan: We will go ahead and continue current IV fluid, antibiotics, and pain medication. The patient is n.p.o. for gallbladder surgery today with Dr. Jamison and I have discussed details with him today. The patient probably will be able to go home tomorrow depending on her condition. The patient was advised to do leg exercises while she is inactive to reduce chances of bl ood clot and SCD was ordered. PIERCE/MODL Voice ID: [id number] Report ID: [id number]
[2024-07-27] MEDS ORDERED: ROCURONIUM 50 MG/5 ML VIAL IV ONE (09:41)
[2024-07-27] MEDS ORDERED: SUCCINYLCHOLINE 20 MG/ML (10 ML) IV ONE (09:41)
[2024-07-27] MEDS ORDERED: MIDAZOLAM HCL 2 MG/2 ML INJ ONE (09:41)
[2024-07-27] MEDS ORDERED: propofoL 200 MG/20 ML VIAL IV ONE (09:41)
[2024-07-27] MEDS ORDERED: SUGAMMADEX SODIUM 200 MG/2 ML VIAL IV ONE (09:41)
[2024-07-27] MEDS ORDERED: FENTANYL CITR 100 MCG/2 ML ONE (09:41)
[2024-07-27] MEDS ORDERED: ONDANSETRON 4 MG/2 ML VIAL ONE (09:41)
[2024-07-27] MEDS ORDERED: LIDOCAINE 2% MPF 5 ML VIAL ONE (09:41)
[2024-07-27] MEDS ORDERED: EPHEDRINE SULF 50 MG/ML VIAL ONE (10:12)
[2024-07-27] MEDS: PIPER TAZO 3.375 GM in NA CHLORIDE 0.9% 100 ML IV ONE (10:20)
[2024-07-27] MEDS ORDERED: GLYCOPYRROLATE 0.2 MG/ML SYR ONE (10:22)
[2024-07-27] MEDS ORDERED: dexAMETHasone 10 MG/ML VIAL ONE (10:22)
[2024-07-27] MEDS ORDERED: Mastisol Adhesive Liq ONE (10:57)
[2024-07-27] MEDS: HYDROMORPHONE HCL 1 MG/ML INJ ONE (11:50)
--- NOTE | 2024-07-27 11:55 | P.OP ---
Date of Service: 07/27/24 Preop diagnosis: Acute cholecystitis and cholelithiasis Postop diagnosis: Same with adhesions Procedure performed: Laparoscopic cholecystectomy, lysis of adhesions Surgeon: Will Jamison MD Metal Model Builder: Robyn BELL Estimated blood loss: Minimal Specimen: Gallbladder Findings: As above Anesthesia: General Complications: None Drains: None Fluids and blood products: Nonapplicable Disposition: Recovery room Operative note: Patient brought to the OR and placed in supine position. General anesthesia began. Patient prepped and draped in usual sterile fashion. Marcaine 0.5% infiltrated locally. 15 blade used to make a 1 cm supraumbilical midline incision. Subcutaneous tissue divided and bleeding controlled cautery. Fascia identified and divided. 15 blade used to open the fascia. #1 Vicryl stay suture placed. Peritoneal cavity entered with sharp and blunt dissection. 12 mm trocar placed into the peritoneal cavity under direct vision. Three 5 mm trocars placed under direct vision. 1 trocar placed in the epigastric region just to the right of midline. The other 2 trocars placed in the right subcostal region under direct vision. Laparoscopy revealed extensive omental adhesions to the gallbladder. LigaSure used for approximately 10 minutes to take down all of the adhesions. Gallbladder was distended and edematous consistent with acute cholecystitis. Fundus retracted superiorly. Infundibulum identified and retracted inferolaterally. Cystic duct and cystic artery clearly identified with blunt dissection. Clips placed and both structures divided. Cautery used to remove the gallbladder from the liver bed. Bleeding in the liver bed was controlled with cautery and Wan at the end of the procedure. Gallbladder retrieved to the umbilicus via Endo Catch bag. Pneumoperitoneum reestablished. Right upper quadrant irrigated and effluent clear. No evidence of bleeding or bile leakage appreciated. All trocars removed under direct vision. Stay sutures tied to each other to reapproximate the fascial defect. Subcutaneous wound irrigated and bleeding controlled cautery. 3-0 chromic used to approximate subcutaneous tissue and close skin. Sterile dressing applied. Patient awakened and taken to recovery room in good general condition. CC: Dr. Miller's office
[2024-07-27] MEDS: PROMETHAZINE INJ 25 MG/ML AMP ONE (12:10)
[2024-07-27] MEDS: ONDANSETRON 4 MG/2 ML VIAL ONE (12:14)
[2024-07-27] MEDS: HYDROMORPHONE HCL 1 MG/ML INJ IV PRN (15:14)
[2024-07-27] MEDS: HYDROCODONE/APAP 7.5/325 MG TAB PO PRN (16:56)
[2024-07-27] MEDS: PIPER TAZO 3.375 GM in NA CHLORIDE 0.9% 100 ML IV SCH (16:59)
[2024-07-27] MEDS ORDERED: METRONIDAZOLE 500mg IVPB 500 MG/100 ML BAG IV SCH (20:00)
[2024-07-27] MEDS ORDERED: CEFAZOLIN 1 GM in NA CHLORIDE 0.9% 100 ML IVPB SCH (20:00)
[2024-07-28 06:27] LABS: Absolute Lymphocytes (CBC) 0.6 K/uL (0.7-4.9); Absolute Monocytes 1.3 K/uL (0.1-1.3); Absolute Neutrophil 15.1 K/uL (1.8-8.0); Basophils % 0.2 % (0-1.3); Hematocrit 35.3 % (36.0-45.0); Lymphocytes % 3.5 % (15.3-44.8); MCH 32.1 pg (27.0-35.0); MCHC 33.9 g/dL (32.0-36.0); MCV 94.5 fL (80-100); MPV 9.8 fL (7.6-11.3); Monocytes % 7.7 % (3.3-12.3); Neutrophils % 88.6 % (41.7-73.7); Platelets 250 thou/uL (152-406); RBC Red Blood Cell Count 3.74 M/uL (3.86-4.86); Red Cell Distribution Width 14.2 % (12.1-15.2)
--- NOTE | 2024-07-28 08:02 | HP ---
Date of Admission: 07/26/2024 Chief Complaint: Abdominal pain. History Of Present Illness: This is a pleasant 69-year-old female patient who came into my office to day with complaints of abdominal pain going on for last 3 days. The patient describes her abdominal pain as epigastric pain associated with some nausea and reduced appetite. The patient reports that h er pain gets worse when she eats or drinks anything. Denies any fever, chills. She has nausea, but no vomiting, constipation, or diarrhea. Denies any blood in stool or black stool. Her last dose of Mounjaro injection was on 07/23/2024 and she reports that her abdominal pain started on 07/24/2024 an d pain has gotten worse over period of time of last 3 days. After I evaluated her different possible diagnosis discussed with her and it was suggested for her to come to emergency room and I did discus s details with the emergency room physician and after the patient was evaluated in the ER, all the te st results reviewed with the emergency room physician and the patient was admitted to the hospital [facility] gallstones with acute cholecystitis. Allergies: TO ACIPHEX CAUSING SHORTNESS OF BREATH AND PROLIA CAUSING ITCHING. Medications: Caltrate plus D 1 tablet 2 times a day, duloxetine 60 mg daily, escitalopram 5 mg daily , famotidine 40 mg 2 times a day, iron 1 tablet every other day, folic acid 1 mg daily, levothyroxine 50 mcg daily, losartan 25 mg daily in morning, progesterone 100 mg daily, Mounjaro 5 mg once a week, trazodone 50 mg takes half to 1 tablet daily at bedtime, and atorvastatin 20 mg daily at bedtime. Review of Systems: GI: As mentioned above. All other systems reviewed and negative. Past Medical History: Significant for hypothyroidism, type 2 diabetes mellitus, hypertension, hyperl ipidemia, rosacea, anemia due to iron deficiency, depression, insomnia, osteoporosis, vitamin D defic iency. Past Surgical History: Significant for gastric bypass surgery in 2008, hemorrhoid surgery, hernia re pair, tubal ligation, hysterectomy, back surgery, surgery for her trigger finger of the right hand, a nd breast augmentation. Family History: Father , had coronary artery disease. Mother had hypertension, hyperlipidemia, and osteoarthritis. Social History: Prior history of smoking not at present time. Use of alcohol occasional. Physical Examination: Vital Signs: Blood pressure 125/82, pulse 92, respiratory rate 16, temperature 98 degrees Fahrenheit , weight 130.4 pounds, height 63 inches. General: Awake, alert, oriented, not in distress. HEENT: Head atraumatic, normocephalic. Conjunctivae nonerythematous. Sclerae white. Mouth, no thr ush or edema noted. Ears/Nose, no mass, lesion, discharge noted. Neck: Supple. No JVD, lymph nodes, bruit, thyromegaly noted. Lungs: Bilateral good equal air entry. Clear to auscultation. No rhonchi. No rales. Heart: Normal heart sounds, no murmur or gallop. Abdomen: Soft. Bowel sounds normal. No guarding, rigidity. No rebound tenderness. No hepatosplen omegaly. No bruit. The patient does have significant tenderness in the epigastric area. Extremities: No leg edema. No calf tenderness. Skin: No rash, ulcer, cellulitis. Lymphatics: No lymph node enlargement in neck, supraclavicular, infraclavicular region. Neuro: No focal neurological deficit. Chest: Unremarkable. External Genitalia: Deferred. Rectal: Deferred. Laboratory Data: Sodium 135, potassium 3.5, chloride 102, bicarb 25, BUN 12, creatinine 1.53, glucos e 108. Troponin is unremarkable, less than 3. Lipase 45. WBC 14.8, hemoglobin 14.7, platelets 318. Abdominal ultrasound shows stone present within the gallbladder neck, with gallbladder wall thicken ing and mild gallbladder distention. Impression: 1. Gallstone with acute cholecystitis. 2. Hypertension. 3. Hyperlipidemia. 4. Type 2 diabetes mellitus. 5. Hypothyroidism. 6. Iron-deficiency anemia. 7. Depression. 8. Insomnia. 9. Osteoporosis. 10. Chronic kidney disease, stage 3A. Plan: We will go ahead and admit the patient to hospital for further evaluation and management of th is problem. The patient is appropriate for inpatient and [facility] We will keep her n.p.o., start her on IV antibiotics and consult Dr. Jamison for her acute cholecys titis with gallstone. The patient will need cholecystectomy and it will be scheduled for tomorrow. Pain medication and nausea medication will be given per order. SCD was ordered for DVT prophylaxis. Her blood pressure is normal right now and we will not give any medication unless it becomes necessa ry at this time, and monitor blood pressure and make decision depending on her numbers. For hyperlip idemia we will hold her cholesterol medication until after surgery and we will restart medication at appropriate time post surgery. For her hypothyroidism, we will also start her levothyroxine after kimbrough rgery. For diabetes, no need for any further intervention. She takes her Mounjaro injection on a we ekly basis. Her next injection is due which will be next week, on Tuesday. For her depression, she t akes her antidepressant medication and we will restart those after her surgery. Total time spent today 85 minutes including evaluation and management for this hospital admission, co mmunication with the emergency room physician on 2 different occasions, review of emergency room visi t record. PIERCE/MODL Voice ID: [id number]
[2024-07-28 08:49] LABS: Atypical Lymphocytes 2 %; Blood Morphology Comment NOT SEEN (NOT SEEN); Differential Total Cells Count 100; Lymphocytes 3 % (15-42); Monocytes 12 % (0-10); Platelet Estimate ADEQ; Segmented Neutrophils 83 % (40-80)
--- NOTE | 2024-07-28 09:37 | PN ---
Date of Progress Note: 07/28/2024 History: Patient is awake, alert, tolerating clear liquids. Vital signs are stable. She is afebril e. However, her white count went up to 17,000 with a left shift. Chemistry reviewed. Her LFTs are essentially within normal limits. Chemistries were not done today. We will check that in the mornin g. She is denying any pain. She is afebrile. Abdomen is benign. Dressing is clean, dry, intact. Assessment: Status post lap choly and lysis of adhesions. Recommendations: Continue IV antibiotics for another day. We will check labs in the morning. Moni cardenasy she will be able to go home tomorrow, but we will wait and see how the labs are in the morning. /MODL Voice ID: [id number] Report ID: [id number]
--- NOTE | 2024-07-28 19:28 | PN ---
Date of Progress Note: 07/28/2024 Subjective: The patient was seen this morning for followup. Denies any new complaints. No nausea, vomiting. Her face appears to be flushed this morning when I saw her. Objective: Vital Signs: Reviewed. She remains afebrile, hemodynamically stable. HEENT: Unremarkable. Lungs: Clear to auscultation. Heart: Sounds normal. Abdomen: Soft. Bowel sounds normal. No guarding, rigidity, tenderness, or distention. Extremities: No leg edema. Labs: WBC 17, which has gone up, yesterday it was 8, upon admission it was 14.8. Hemoglobin today 1 2. Platelets 250. Impression: 1. Gallstones with acute cholecystitis. 2. Hypertension. 3. Hyperlipidemia. 4. Type 2 diabetes mellitus. Plan: We will go ahead and continue current antibiotic which is Zosyn and plan is to repeat blood wo rk tomorrow morning, and depending on her blood work and her condition, we will decide whether we can safely discharge her to go home tomorrow or not. Will continue to follow with Dr. Jamison. Details w ere discussed with the patient. PIERCE/MODL Voice ID: [id number] Report ID: [id number]
[2024-07-29 06:44] LABS: Absolute Eosinophils 0.1 K/uL (0-0.5); Absolute Lymphocytes (CBC) 0.7 K/uL (0.7-4.9); Absolute Monocytes 0.7 K/uL (0.1-1.3); Absolute Neutrophil 5.7 K/uL (1.8-8.0); Basophils % 0.4 % (0-1.3); Eosinophils % 0.9 % (0-4.4); Hemoglobin 9.7 g/dL (12.0-15.0); Lymphocytes % 9.3 % (15.3-44.8); MCHC 33.6 g/dL (32.0-36.0); MCV 95.4 fL (80-100); MPV 9.6 fL (7.6-11.3); Monocytes % 9.3 % (3.3-12.3); Neutrophils % 80.1 % (41.7-73.7); Platelets 153 thou/uL (152-406); RBC Red Blood Cell Count 3.04 M/uL (3.86-4.86)
[2024-07-29 06:59] LABS: Albumin 2.4 g/dL (3.4-5.0); Albumin/Globulin Ratio 0.8 (1.1-1.8); Anion Gap 11.2 mEq/L (5.0-15.0); Bilirubin Direct 0.2 mg/dL (0-0.2); Bilirubin Indirect, Calculated 0.3 mg/dL (0.2-0.8); Bilirubin Total 0.5 mg/dL (0.2-1.0); Magnesium 1.7 mg/dL (1.6-2.4); Phosphorus 1.7 mg/dL (2.5-4.9); Potassium 3.2 mEq/L (3.5-5.1); Protein, Total 5.4 g/dL (6.4-8.2)
[2024-07-29] MEDS: POTASSIUM CL SA 10 MEQ TAB PO ONE (09:04)
[2024-07-29] MEDS: POTASS/SODIUM PHOSPHATE 1 PKT POWD.PACK PO ONE (09:04)
--- NOTE | 2024-07-29 09:33 | PN ---
Date of Progress Note: 07/29/2024 History: Patient is awake, alert, no new complaints. Vitals stable, afebrile. White count is down to 7000. Left shift has improved as well. Chemistry reviewed. Her potassium and phosphorus are slightly low and being replaced. LFTs are just slightly elevated and that is not unusual after dissection of the gallbladder on the liver bed. The lipase is normal. Abdomen is benign. Assessment: Status post laparoscopic cholecystectomy and lysis of adhesion. Recommendations: The patient is clinically stable enough to be discharged on oral antibiotics and pain medicine. Discharge instructions given. Follow up in my office in 1 week. The patient should be to have her potassium and phosphorus replaced prior to discharge. It is in progress. /MODL Voice ID: [id number] Report ID: [id number]
[2024-07-29 10:03] VITALS: O2SAT 98
[2024-07-29 12:29] VITALS: BP 124/62; TEMP 98.7
--- NOTE | 2024-07-29 20:04 | DS ---
Date of Discharge: 07/29/2024 Disposition: Discharged to go home. Physical Examination: HEENT: Unremarkable. Lungs: Clear to auscultation. Heart: Sounds normal. Abdomen: Soft. Bowel sounds normal. No guarding, rigidity, tenderness, distention. Extremities: No leg edema. Laboratory Data: Upon admission, WBC 14.8, hemoglobin 14.7, platelets 318. Day after admission, WBC was 8, hemoglobin 12.2, platelets 183. Yesterday, WBC went up to 17, hemoglobin 12, platelets 250, and today, WBC 7.10, hemoglobin 9.7, platelets 153. Chemistry upon admission, sodium 135, potassium 3.5, chloride 102, bicarb 25, BUN 12, creatinine 1.53, glucose 108. Liver function tests unremarkabl e. Today, sodium 145, potassium 3.2, chloride 117, bicarb 20, BUN 5, creatinine 0.13, glucose 67, p hosphorus 1.7, total bilirubin 0.5, AST 70, ALT 90, alkaline phosphatase 157, lipase 20. Discharge Medications And Instructions: 1. Continue all prior home medication except following changes. a. Do not take your dose of Mounjaro injection tomorrow and you may resume Mounjaro as of July [id number]. b. Start Augmentin 875 mg take 1 tablet by mouth 2 times a day with food for 1 week. c. Zofran 4 mg 1 tablet by mouth 4 times a day as needed for nausea. 2. Follow up at my office next week on which is 08/02/2024. 3. Follow up with Dr. Jamison in 1 week. 4. May shower and then remove dressing in the a.m. 5. Keep Steri-Strips on at all time. 6. Activity as tolerated. No heavy lifting. 7. Incentive spirometry as instructed. 8. May use Tylenol 500 mg 1 tablet by mouth 4 times a day as needed for pain. Hospital Course: 69-year-old pleasant female patient who came into office with abdominal pain compla int. Please see dictated H and P for more information. The patient was evaluated at office. She wa s sent to emergency room for further evaluation, was done with routine blood work and abdominal ultra sound which showed presence of stone within the gallbladder neck along with gallbladder wall thickeni ng and mild gallbladder wall distention. The patient was admitted to the hospital with gallstones wi th acute cholecystitis. Dr. Jamison from General Surgery was consulted, and day after admission, the p jose had surgery done in form of laparoscopic cholecystectomy. Postoperatively, her pain has impro nirmal. She is tolerating diet very well. Yesterday, her WBC count had gone up. The patient has been getting Zosyn and this was continued yesterday and we decided to repeat blood work today which is mike wing significant improvement in her WBC count which is back to normal today. Overall, patient is fee ling better. Had some nausea, but no vomiting and she would be discharged to go home in stable condi tion today with above-mentioned medications and instructions. Final Diagnoses: 1. Gallstones with acute cholecystitis. 2. Anemia. 3. Hypokalemia. 4. Hypophosphatemia. 5. Hypertension. 6. Hyperlipidemia. 7. Abnormal liver function tests. 8. Type 2 diabetes mellitus. 9. Hypothyroidism. 10. Iron-deficiency anemia. 11. Depression. 12. Insomnia. 13. Osteoporosis. 14. Chronic kidney disease, stage 3A. Total time spent today 40 minutes. PIERCE/MODL Voice ID: [id number] Report ID: [id number]
--- NOTE | 2024-07-30 12:12 | EKG ---
Test Date: 2024-07-26 Test Time: 19:29:06 Dietetic Aide: FLOWER MEASUREMENT RESULTS: Intervals: Rate: 64 TN: 162 QRSD: 84 QT: 446 QTc: 460 [place]: P: 74 TN: 162 QRS: 84 T: 61 INTERPRETIVE STATEMENTS: Normal sinus rhythm Normal ECG No previous ECG available for comparison Electronically Signed On 07-30-24 12:03:44 CDT by Rafal Almonte
--- NOTE | 2024-08-02 08:51 | EKG ---
Test Date: 2024-07-27 Test Time: 11:50:37 Jeep Mechanic: YOLA MEASUREMENT RESULTS: Intervals: Rate: 87 MS: 150 QRSD: 82 QT: 400 QTc: 481 [place]: P: 75 MS: 150 QRS: 76 T: 55 INTERPRETIVE STATEMENTS: Normal sinus rhythm Normal ECG Compared to ECG 07/26/2024 19:29:06 No significant changes Electronically Signed On 08-02-24 08:41:33 CDT by Rafal Almonte
== END 2024-07-29 12:55 | disposition home or self-care (01) | DRG 419 ==
LOC: ER 14:30 → ERHOLD 18:24 → 2ND 20:02
PROVIDERS: ADMIT Internal Medicine; ATTEND Internal Medicine
PROC: 0FT44ZZ Resection of Gallbladder, Percutaneous Endoscopic Approach (ICD-10-PCS; principal; 2024-07-27 10:30)
DX: K80.00 Calculus of gallbladder with acute cholecystitis without obstruction (principal); I12.9 Hypertensive chronic kidney disease with stage 1 through stage 4 chronic kidney disease, or unspecified chronic kidney disease; N18.31 Chronic kidney disease, stage 3a; E78.5 Hyperlipidemia, unspecified; E03.9 Hypothyroidism, unspecified; D50.9 Iron deficiency anemia, unspecified; F32.A Depression, unspecified; G47.00 Insomnia, unspecified; M81.0 Age-related osteoporosis without current pathological fracture
CPT/HCPCS: 36415; 76705; 80048; 80053; 80076; 81001; 82947; 83690; 83735; 84100; 84484; 85025; 88304; 93005; 94010; 96365; 96375; 99285; J0694; J1100; J1171; J1200; J2003; J2250; J2405; J2543; J2550; J2704; J2765; J3010; J7030; J7040